=== PATIENT | female | born 1995 | race Caucasian/White ===

== ENCOUNTER 2016-11-20 10:26 | Emergency (ER) | payer OTHER ==
[2016-11-20 10:37] VITALS: BP 126/81
--- NOTE | 2016-11-20 10:41 | ER Document Report ---
ED Medical Screen (RME) - General Stated Complaint: POSSIBLE SYNCOPE Mode of Arrival: Medic Information source: Patient Notes: Patient presents to the emergency department after passing out at work. She reports she was sitting in a chair and just passed out. She reports this happens every day. Has history of epilepsy denies cardiac disease diabetes. Reports she ate breakfast. Denies other symptoms such as fever vomiting diarrhea. Denies trauma I have greeted and performed a rapid initial assessment of this patient. A comprehensive ED assessment and evaluation of the patient, analysis of test results and completion of the medical decision making process will be conducted by additional ED providers. TRAVEL OUTSIDE OF THE [place] IN LAST 30 DAYS: No - Related Data Allergies/Adverse Reactions: ketorolac tromethamine [From Toradol] Allergy (Verified 08/15/16 20:32) moxifloxacin HCl [From Avelox] Allergy (Verified 08/15/16 20:32) Seizures promethazine HCl [From Phenergan] Allergy (Verified 08/15/16 20:32) tramadol Allergy (Verified 08/15/16 20:32) Past Medical History Neurological Medical History: Reports: Hx Seizures Renal/ Medical History: Reports: Hx Kidney Stones, Hx Ovarian Cysts, Hx Pelvic Inflammatory Disease - February 2014 Musculoskeltal Medical History: Reports Hx Arthritis, Reports Hx Musculoskeletal Trauma Psychiatric Medical History: Reports: Hx Depression Past Surgical History: Reports: Hx Appendectomy, Hx Cholecystectomy - Immunizations Immunizations up to date: Yes Hx Diphtheria, Pertussis, Tetanus Vaccination: Yes Physical Exam - Vital signs Vitals: Temp Pulse Resp BP Pulse Ox 98.3 F 88 16 126/81 H 100 11/20/16 10:35 11/20/16 10:35 11/20/16 10:35 11/20/16 10:35 11/20/16 10:35 Course - Vital Signs Vital signs: Temp Pulse Resp BP Pulse Ox 98.3 F 88 16 126/81 H 100 11/20/16 10:35 11/20/16 10:35 11/20/16 10:35 11/20/16 10:35 11/20/16 10:35
--- NOTE | 2016-11-20 15:56 | EKG REPORT ---
SEVERITY:- NORMAL ECG - SINUS RHYTHM : Confirmed by: Avtar Villeda 20-Nov-2016 15:56:02
== END 2016-11-20 11:14 | disposition left against medical advice (07) ==
LOC: ER 10:26
DX: Z53.21 Procedure and treatment not carried out due to patient leaving prior to being seen by health care provider (principal)
CPT/HCPCS: 93005; 93010; 99281

== ENCOUNTER 2017-01-02 10:22 | Emergency (ER) | payer OTHER ==
[2017-01-02] MEDS ORDERED: NORMAL SALINE 1000 ML 1,000 ML IV ONE (10:36)
[2017-01-02] MEDS ORDERED: LEVETIRACETAM 500 MG/NACL-ISO 100 ML IV ONE ×2 (10:46→11:34)
--- NOTE | 2017-01-02 10:48 | ER Document Report ---
ED General - General Chief Complaint: Probable Seizure Stated Complaint: POSSIBLE SEIZURE Time Seen by Provider: 01/02/17 10:35 TRAVEL OUTSIDE OF THE [place] IN LAST 30 DAYS: No - HPI Patient complains to provider of: seizure Notes: Patient coming in for seizure-like activity. According to the patient she has had 2 seizures today. Upon my evaluation patient is awake alert somewhat groggy however ANO 3. Patient states she is unaware the last time she had seizures. States that her neurologist is . Patient states she has been compliant with her seizure medications. Patient states that her boyfriend has been sick over the last few days with nausea and vomiting patient states that she herself has had diarrhea. Otherwise patient has no other complaints. Patient is requesting for pain medication morphine and Dilaudid at this time. I have explained to the patient that she will not be receiving narcotics while she is being worked up for her seizures Patient states she has been in status before unaware of when she was in status - Related Data Allergies/Adverse Reactions: ketorolac tromethamine [From Toradol] Allergy (Verified 01/02/17 10:39) moxifloxacin HCl [From Avelox] Allergy (Verified 01/02/17 10:39) Seizures promethazine HCl [From Phenergan] Allergy (Verified 01/02/17 10:39) tramadol Allergy (Verified 01/02/17 10:39) Past Medical History - Social History Smoking Status: Unknown if Ever Smoked Family History: Reviewed & Not Pertinent Neurological Medical History: Reports: Hx Seizures Renal/ Medical History: Reports: Hx Kidney Stones, Hx Ovarian Cysts, Hx Pelvic Inflammatory Disease - February 2014. Denies: Hx Peritoneal Dialysis Musculoskeltal Medical History: Reports Hx Arthritis, Reports Hx Musculoskeletal Trauma Psychiatric Medical History: Reports: Hx Depression Past Surgical History: Reports: Hx Appendectomy, Hx Cholecystectomy - Immunizations Immunizations up to date: Yes Hx Diphtheria, Pertussis, Tetanus Vaccination: Yes Review of Systems - Review of Systems Constitutional: No symptoms reported EENT: No symptoms reported Cardiovascular: No symptoms reported Respiratory: No symptoms reported Gastrointestinal: No symptoms reported Genitourinary: No symptoms reported Female Genitourinary: No symptoms reported Musculoskeletal: No symptoms reported Skin: No symptoms reported Hematologic/Lymphatic: No symptoms reported Neurological/Psychological: Seizure -: Yes All other systems reviewed and negative Physical Exam - Vital signs Vitals: Resp Pulse Ox 16 98 01/02/17 10:36 01/02/17 10:36 Interpretation: Normal - General General appearance: Appears well, Alert - HEENT Head: Normocephalic, Atraumatic Eyes: Normal Pupils: PERRL - Respiratory Respiratory status: No respiratory distress Chest status: Nontender Breath sounds: Normal Chest palpation: Normal - Cardiovascular Rhythm: Regular Heart sounds: Normal auscultation Murmur: No - Abdominal Inspection: Normal Distension: No distension Bowel sounds: Normal Tenderness: Nontender Organomegaly: No organomegaly - Back Back: Normal, Nontender - Extremities General upper extremity: Normal inspection, Nontender, Normal color, Normal ROM , Normal temperature General lower extremity: Normal inspection, Nontender, Normal color, Normal ROM , Normal temperature, Normal weight bearing. No: Aubrey's sign - Neurological Neuro grossly intact: Yes Cognition: Normal Orientation: AAOx4 Alyse Coma Scale Eye Opening: Spontaneous Alyse Coma Scale Verbal: Oriented Frederick Coma Scale Motor: Obeys Commands Alyse Coma Scale Total: 15 Speech: Normal Motor strength normal: LUE, RUE, LLE, RLE Sensory: Normal - Psychological Associated symptoms: Normal affect, Normal mood - Skin Skin Temperature: Warm Skin Moisture: Dry Skin Color: Normal Course - Re-evaluation Re-evalutation: 01/02/17 10:49 Currently patient is a 3 with a 4 extremities normal neurological examination. Patient will be continued monitor. Will check a basic lab work CK tox screen. Will hold any narcotic pain medication will give the patient 500 mg of Keppra while she is waiting. Patient will be an IV fluid as wel 01/02/17 11:40 Called as the patient was in the bathroom given urine samples on the floor possibly having a seizure. There is no seizure activity seen by the staff patient was found floor. There is no signs of trauma of the patient falling off the toilet seat on the floor. Is no bruising to the head no contusions nothing to the hand. Patient was placed in a c-collar. Patient was escorted to radiology for do process on head CT neck CT chest x-ray after possible fall here in the hospital Patient will be continually monitored here 01/02/17 12:50 Because the patient's room for seizure-like activity patient with general tonic- clonic movement lasting for approximately 30 seconds did asked nurse to obtain a his airway which time the patient's activity did stop. Did leave the room and the activity discharged again. Given generalized tonic clonic activity nursing at bedside with nasal trumpet however again seizing activity had subsided. Patient after this does have corneal reflexes does restrain when trying to open up her eyes passive action 01/02/17 18:31 Discuss patient's case with her neurologist Dr. cabrera he states at this time this patient very well does have a history of pseudoseizures do not recommend changing medication agrees with ER course recommends discharged home follow-up in his office. Patient lab work shows no signs of critical etiology. Once a nasal trumpet was placed and the patient bedside patient no longer had any further possible seizure-like activity. Patient alert and oriented 3 upon evaluation will be discharged home follow-up with her neurologist encouraged take medications as prescribed. - Vital Signs Vital signs: Temp Pulse Resp BP Pulse Ox 98.2 F 12 126/85 H 100 01/02/17 14:43 01/02/17 14:37 01/02/17 14:38 01/02/17 14:37 - Laboratory Result Diagrams: 01/02/17 11:00 01/02/17 11:00 Laboratory results interpreted by me: 01/02/17 11:00 RDW 15.2 H Discharge - Discharge Clinical Impression: Seizure Condition: Good Disposition: HOME, SELF-CARE Instructions: Seizure, Known Epileptic ([facility]) Additional Instructions: Continue your medications as prescribed. Please avoid alcohol Return to the ER symptoms worsen follow-up with your neurologist. Call his office today for several a follow-up appointment Referrals: JEROME COLE DO [Primary Care Provider] - Follow up in 3-5 days KATIE KAMINSKI MD [ACTIVE STAFF] - Follow up in 3-5 days
[2017-01-02 11:26] LABS: ABSOLUTE LYMPHOCYTES (AUTO) 1.7 10^3/uL (0.5-4.7); ABSOLUTE MONOCYTES (AUTO) 0.4 10^3/uL (0.1-1.4); ABSOLUTE NEUT (AUTO) 2.2 10^3/uL (1.7-8.2); BASOPHILS % (AUTO) 0.4 % (0-2); EOSINOPHILS % (AUTO) 0.1 % (0-6); HEMATOCRIT 37.1 % (36.0-47.0); HEMOGLOBIN 12.5 g/dL (12.0-15.5); HGB HCT DIFFERENCE 0.4; LYMPHOCYTES % (AUTO) 39.2 % (13-45); MEAN CORPUSCULAR HGB CONC 33.6 g/dL (32.0-36.0); MEAN CORPUSCULAR VOLUME 86 fl (80-97); MONOCYTES % (AUTO) 8.3 % (3-13); RED CELL DISTRIBUTION WIDTH 15.2 % (11.5-14.0); WHITE BLOOD COUNT 4.2 10^3/uL (4.0-10.5)
[2017-01-02 11:49] LABS: ALANINE AMINOTRANSFERASE 25 U/L (9-52); ALBUMIN 4.1 g/dL (3.5-5.0); ALKALINE PHOSPHATASE 54 U/L (38-126); ANION GAP 9 (5-19); ASPARTATE AMINO TRANSFERASE 19 U/L (14-36); BILIRUBIN,DIRECT 0.4 mg/dL (0.0-0.4); BILIRUBIN,TOTAL 0.4 mg/dL (0.2-1.3); BLOOD UREA NITROGEN 11 mg/dL (7-20); CALCIUM 9.4 mg/dL (8.4-10.2); CARBON DIOXIDE 27 mmol/L (22-30); CHLORIDE 104 mmol/L (98-107); CREATINE KINASE 36 U/L (30-135); GLUCOSE 91 mg/dL (75-110); LIPASE 84.7 U/L (23-300); SODIUM 139.7 mmol/L (137-145); TOTAL PROTEIN 6.7 g/dL (6.3-8.2)
[2017-01-02 11:51] LABS: ALCOHOL < 10 mg/dL (NONE DETECTED)
[2017-01-02 11:56] LABS: APPEARANCE,URINE CLEAR; BILIRUBIN,URINE NEGATIVE (NEGATIVE); GLUCOSE, URINE NEGATIVE (NEGATIVE); KETONES,URINE NEGATIVE (NEGATIVE); LEUKOCYTE ESTERASE,URINE NEGATIVE (NEGATIVE); NITRITE,URINE NEGATIVE (NEGATIVE); PROTEIN,URINE NEGATIVE (NEGATIVE); URINE SPECIFIC GRAVITY 1.003; UROBILINOGEN,URINE NEGATIVE mg/dL (<2.0)
[2017-01-02 12:18] LABS: URINE BARBITURATES SCREEN NEGATIVE; URINE METHADONE SCREEN NEGATIVE; URINE OPIATES LOW NEGATIVE; URINE PHENCYCLIDINE SCREEN NEGATIVE
[2017-01-02 14:42] VITALS: BP 126/85
== END 2017-01-02 14:42 | disposition home or self-care (01) ==
LOC: ER 10:22
DX: G40.909 Epilepsy, unspecified, not intractable, without status epilepticus (principal); Z87.442 Personal history of urinary calculi; Z90.49 Acquired absence of other specified parts of digestive tract
CPT/HCPCS: 99285; 36415; 80177; 80307 ×2; 82550; 84702; 83690; 85025; 80053; 81001; 71010; 70450; 72125; J7030

== ENCOUNTER 2017-01-18 11:43 | Emergency (ER) | payer OTHER ==
--- NOTE | 2017-01-18 11:50 | ER Document Report ---
ED General - General Stated Complaint: SEIZURE Time Seen by Provider: 01/18/17 11:46 Mode of Arrival: Medic Information source: Patient Notes: 21-year-old female history of pseudoseizures presents with a seizure-like episode. EMS notes patient had 2-3 such episodes, they gave her 4 mg of Valium. Patient is on Keppra TRAVEL OUTSIDE OF THE [place] IN LAST 30 DAYS: No - HPI Onset: Just prior to arrival Onset/Duration: Sudden Quality of pain: No pain Severity: None Pain Level: Denies Associated symptoms: Other Exacerbated by: Denies Relieved by: Denies Similar symptoms previously: Yes Recently seen / treated by doctor: Yes - Related Data Allergies/Adverse Reactions: ketorolac tromethamine [From Toradol] Allergy (Verified 01/18/17 11:59) moxifloxacin HCl [From Avelox] Allergy (Verified 01/18/17 11:59) Seizures promethazine HCl [From Phenergan] Allergy (Verified 01/18/17 11:59) tramadol Allergy (Verified 01/18/17 11:59) Home Medications: Current Home Medications Clobazam [Onfi] 10 mg PO QHS 01/18/17 [History] Duloxetine HCl [Cymbalta] 60 mg PO BID 01/18/17 [History] Eslicarbazepine Acetate [Aptiom] 1,200 mg PO QHS 01/18/17 [History] Levetiracetam [Keppra 500 mg Tablet] 1,500 mg PO QAM 01/18/17 [History] Levetiracetam [Keppra 500 mg Tablet] 1,500 mg PO QHS 01/18/17 [History] Lorazepam [Ativan 1 mg Tablet] PO PRN 01/18/17 [History] Past Medical History - Social History Smoking Status: Never Smoker Cigarette use (# per day): No Chew tobacco use (# tins/day): No Smoking Education Provided: No Family History: Reviewed & Not Pertinent Neurological Medical History: Reports: Hx Seizures Renal/ Medical History: Reports: Hx Kidney Stones, Hx Ovarian Cysts, Hx Pelvic Inflammatory Disease - February 2014. Denies: Hx Peritoneal Dialysis Musculoskeltal Medical History: Reports Hx Arthritis, Reports Hx Musculoskeletal Trauma Psychiatric Medical History: Reports: Hx Depression Past Surgical History: Reports: Hx Appendectomy, Hx Cholecystectomy - Immunizations Immunizations up to date: Yes Hx Diphtheria, Pertussis, Tetanus Vaccination: Yes Review of Systems - Review of Systems Notes: PHYSICAL EXAMINATION: GENERAL: Well-appearing, well-nourished and in no acute distress. HEAD: Atraumatic, normocephalic. EYES: Pupils equal round and reactive to light, extraocular movements intact, conjunctiva are normal. ENT: Nares patent, oropharynx clear without exudates. Moist mucous membranes. NECK: Normal range of motion, supple without lymphadenopathy LUNGS: Breath sounds clear to auscultation bilaterally and equal. No wheezes rales or rhonchi. HEART: Regular rate and rhythm without murmurs ABDOMEN: Soft, nontender, nondistended abdomen. No guarding, no rebound. No masses appreciated. Female : deferred Musculoskeletal: Normal range of motion, no pitting or edema. No cyanosis. NEUROLOGICAL: Cranial nerves grossly intact. Normal speech, normal gait. Normal sensory, motor exams patient is able to resist from dropping her left arm on her head PSYCH: Normal mood, normal affect. SKIN: Warm, Dry, normal turgor, no rashes or lesions noted. Physical Exam - Vital signs Vitals: Resp BP 50 H 148/88 H 01/18/17 11:48 01/18/17 11:48 Course - Re-evaluation Re-evalutation: 01/18/17 11:49 Given extensive history pseudoseizures, and her actions in the emergency department patient's having probably another pseudoseizure. Lab work is pending. Patient did have another episode of generalized tonic-clonic I do not know any actual seizure activity at this time 01/18/17 15:02 Patient has been watched in the emergency department for approximately 3-1/2 hours, she has been stable throughout, intermittently she will become tachycardic when she is shaking her legs. Otherwise she is stable for discharge Given that her neurologist believes there is pseudoseizure activity I will have her follow-up with him, Les jung pending After performing a Medical Screening Examination, I estimate there is LOW risk for INTRACRANIAL HEMORRHAGE, ISCHEMIC CVA, MALIGNANT DYSRHYTHMIA, ACUTE CORONARY SYNDROME, MENINGITIS, PULMONARY EMBOLISM, or SEPSIS thus I consider the discharge disposition reasonable. I have reevaluated this patient multiple times and no significant life threatening changes are noted. The patient and I have discussed the diagnosis and risks, and we agree with discharging home with close follow-up with the understanding that symptoms and presentations can change. We also discussed returning to the Emergency Department immediately if new or worsening symptoms occur. We have discussed the symptoms which are most concerning (e.g., changing or worsening pain, weakness, vomiting, fever) that necessitate immediate return. - Vital Signs Vital signs: Temp Pulse Resp BP Pulse Ox 99.6 F 132 H 20 140/95 H 98 01/18/17 11:53 01/18/17 11:53 01/18/17 14:31 01/18/17 14:31 01/18/17 14:31 - Laboratory Result Diagrams: 01/18/17 11:54 01/18/17 11:54 Laboratory results interpreted by me: 01/18/17 01/18/17 01/18/17 11:54 11:54 12:20 RDW 14.3 H Sodium 136.0 L Ur Leukocyte Esterase TRACE H - EKG Interpretation by Me EKG shows normal: Sinus rhythm, [place], Intervals, QRS Complexes Discharge - Discharge Clinical Impression: Seizure-like activity, Tachycardia Condition: Stable Disposition: HOME, SELF-CARE Additional Instructions: Seizure, Known Epileptic You have had a seizure. Seizures may "break through" in an epileptic due to stress of infection or injury, a change in blood chemistry, or drug and alcohol use. Another common cause is failure to take medication as prescribed. Your doctor has evaluated your situation for the likely cause of this seizure. It is important that you follow his advice concerning any medication changes and follow-up care. Further testing of anti-seizure medication levels in your blood may be necessary. 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 This seizure must be reported to the milk delivery driver 's license bureau. Call the doctor or return if seizures recur, or if new or unusual symptoms arise -- such as severe headache, confusion, excessive sleepiness, local weakness or numbness, neck stiffness, or fever. Referrals: KATIE KAMINSKI MD [ACTIVE STAFF] - Follow up as needed
[2017-01-18 12:13] LABS: ABSOLUTE LYMPHOCYTES (AUTO) 2.4 10^3/uL (0.5-4.7); ABSOLUTE MONOCYTES (AUTO) 0.4 10^3/uL (0.1-1.4); ABSOLUTE NEUT (AUTO) 3.7 10^3/uL (1.7-8.2); BASOPHILS % (AUTO) 0.5 % (0-2); EOSINOPHILS % (AUTO) 0.1 % (0-6); HEMOGLOBIN 13.3 g/dL (12.0-15.5); HGB HCT DIFFERENCE -0.1; LYMPHOCYTES % (AUTO) 36.7 % (13-45); MEAN CORPUSCULAR HEMOGLOBIN 28.7 pg (27.0-33.4); MEAN CORPUSCULAR HGB CONC 33.3 g/dL (32.0-36.0); MEAN CORPUSCULAR VOLUME 86 fl (80-97); MONOCYTES % (AUTO) 6.7 % (3-13); RED BLOOD COUNT 4.63 10^6/uL (3.72-5.28); RED CELL DISTRIBUTION WIDTH 14.3 % (11.5-14.0); WHITE BLOOD COUNT 6.6 10^3/uL (4.0-10.5)
[2017-01-18 12:34] LABS: ALANINE AMINOTRANSFERASE 25 U/L (9-52); ALBUMIN 4.4 g/dL (3.5-5.0); ALKALINE PHOSPHATASE 54 U/L (38-126); ANION GAP 12 (5-19); ASPARTATE AMINO TRANSFERASE 20 U/L (14-36); BILIRUBIN,DIRECT 0.4 mg/dL (0.0-0.4); BILIRUBIN,TOTAL 0.5 mg/dL (0.2-1.3); BLOOD UREA NITROGEN 14 mg/dL (7-20); CALCIUM 9.9 mg/dL (8.4-10.2); CARBON DIOXIDE 25 mmol/L (22-30); CHLORIDE 99 mmol/L (98-107); CREATININE RESULT 0.67 mg/dL (0.52-1.25); GLUCOSE 82 mg/dL (75-110); POTASSIUM 4.4 mmol/L (3.6-5.0); TOTAL PROTEIN 7.2 g/dL (6.3-8.2)
[2017-01-18 12:57] LABS: APPEARANCE,URINE CLEAR; BILIRUBIN,URINE NEGATIVE (NEGATIVE); GLUCOSE, URINE NEGATIVE (NEGATIVE); KETONES,URINE NEGATIVE (NEGATIVE); LEUKOCYTE ESTERASE,URINE TRACE (NEGATIVE); NITRITE,URINE NEGATIVE (NEGATIVE); PROTEIN,URINE NEGATIVE (NEGATIVE); URINE SPECIFIC GRAVITY 1.009; UROBILINOGEN,URINE NEGATIVE mg/dL (<2.0)
[2017-01-18 13:17] LABS: URINE BARBITURATES SCREEN NEGATIVE; URINE METHADONE SCREEN NEGATIVE; URINE OPIATES LOW NEGATIVE; URINE PHENCYCLIDINE SCREEN NEGATIVE
[2017-01-18] MEDS ORDERED: ACETAMINOPHEN 325 MG TABLET PO ONE (13:30)
[2017-01-18 14:56] VITALS: BP 140/95
--- NOTE | 2017-01-18 18:31 | EKG REPORT ---
SEVERITY:- OTHERWISE NORMAL ECG - SINUS TACHYCARDIA : Confirmed by: Shakir Velazquez MD 18-Jan-2017 18:29:55
== END 2017-01-18 15:20 | disposition home or self-care (01) ==
LOC: ER 11:43
DX: R29.818 Other symptoms and signs involving the nervous system (principal); R00.0 Tachycardia, unspecified; Z79.899 Other long term (current) drug therapy; Z88.8 Allergy status to other drugs, medicaments and biological substances; Z88.5 Allergy status to narcotic agent
CPT/HCPCS: 36415; 51701; 80053; 80177; 80307; 81001; 81025; 82962; 85025; 93005; 93010; 99284

== ENCOUNTER 2017-05-10 15:21 | Emergency (ER) | payer OTHER ==
[2017-05-10] MEDS ORDERED: NORMAL SALINE 1000 ML 1,000 ML IV ONE (16:01)
--- NOTE | 2017-05-10 16:14 | ER Document Report ---
ED Seizure - General Stated Complaint: POSSIBLE SEIZURE Time Seen by Provider: 05/10/17 15:50 Notes: 22-year-old female presents with questionable seizure. History is limited as the patient is very sedated after receiving Valium 10 mg IV and a total of Versed 10 mg through IV/intranasal routes. Reviewing records she does have a history of pseudoseizures and is apparently on Keppra. She was able to tell the nurse she has been taking her medications. EMS reported 2 seizures that were generalized tonic-clonic. They were reported as going from one side to the other. Unclear of the patient's consciousness during this. Apparently there was no incontinence. Again the patient can give me no reports at this point. - Related Data Allergies/Adverse Reactions: ketorolac tromethamine [From Toradol] Allergy (Verified 01/18/17 11:59) moxifloxacin HCl [From Avelox] Allergy (Verified 01/18/17 11:59) Seizures promethazine HCl [From Phenergan] Allergy (Verified 01/18/17 11:59) tramadol Allergy (Verified 01/18/17 11:59) Past Medical History - Social History Smoking Status: Smoker,Current Status Unk Family History: Reviewed & Not Pertinent Neurological Medical History: Reports: Hx Seizures Renal/ Medical History: Reports: Hx Kidney Stones, Hx Ovarian Cysts, Hx Pelvic Inflammatory Disease - February 2014. Denies: Hx Peritoneal Dialysis Musculoskeltal Medical History: Reports Hx Arthritis, Reports Hx Musculoskeletal Trauma Psychiatric Medical History: Reports: Hx Depression Past Surgical History: Reports: Hx Appendectomy, Hx Cholecystectomy - Immunizations Immunizations up to date: Yes Hx Diphtheria, Pertussis, Tetanus Vaccination: Yes Review of Systems - Review of Systems -: Yes ROS unobtainable due to patient's medical condition Physical Exam - Vital signs Interpretation: Tachycardic - Notes Notes: GENERAL: VS as per nursing doc. Well-appearing, well-nourished and in no acute distress. Somnolent and resting intermittently opening eyes. HEAD: Atraumatic, normocephalic. EYES: Pupils equal round and reactive to light but sluggish at 6 mm, no gaze noted, sclera anicteric, no conjunctival injection or discharge. ENT: Left nasal trumpet in place, oropharynx clear without exudates. Moist mucous membranes. NECK: Normal range of motion, supple, no carotid bruits. LUNGS: Breath sounds clear to auscultation bilaterally and equal. No wheezes rales or rhonchi. HEART: Normal S1S2. Regular rate and rhythm without murmurs. Equal peripheral pulses. ABDOMEN: Soft, no mass or obvious tenderness to palpation EXTREMITIES: Normal range of motion passively, no edema NEUROLOGICAL: Patient not cooperative for exam at this point. There is withdrawal to stimuli. No seizure activity noted PSYCH: Nonverbal, somnolent SKIN: Warm, Dry, no cyanosis, Cap refill < 2 sec. small abrasion over left anterior ankle which is old. Course - Re-evaluation Re-evalutation: 05/10/17 19:12 I had a discussion with the patient to see if there is anything that could be causing her seizures or pseudoseizures. Reviewed the chart from prior. She had no seizure activity here that I could observe and nurses noted no anywhere she was postictal or unresponsive. She is asking just to go home at this point. She did start Vistaril but states she has not taken more than she was directed. Her big concern seem to be pain management as the benzos started to wear off. I do not feel comfortable providing her with narcotics but I did offer her Robaxin and wrote her a prescription for this. She received a dose of Keppra before she left. - Laboratory Result Diagrams: 05/10/17 16:06 05/10/17 16:06 Laboratory results interpreted by me: 05/10/17 16:06 Hgb 11.0 L Hct 32.8 L RDW 14.3 H - EKG Interpretation by Me Rate: Tachycardia - Rate 114, sinus tachycardia, nonspecific ST abnormalities more V4 through V6 and inferiorly. Appears consistent with December 2016 EKG. QRS abnormal duration. Discharge - Discharge Clinical Impression: Altered mental status, Possible Seizure vs Pseudoseizure Condition: Good Additional Instructions: Return for emergency or concern. Prescriptions: Methocarbamol [Robaxin 750 mg Tablet] 750 - 1,500 mg PO Q8HP PRN #14 tablet PRN Reason: For Pain Referrals: KATIE KAMINSKI MD [ACTIVE STAFF] - Follow up tomorrow
[2017-05-10 16:29] LABS: ABSOLUTE LYMPHOCYTES (AUTO) 1.2 10^3/uL (0.5-4.7); ABSOLUTE MONOCYTES (AUTO) 0.4 10^3/uL (0.1-1.4); ABSOLUTE NEUT (AUTO) 3.1 10^3/uL (1.7-8.2); BASOPHILS % (AUTO) 0.6 % (0-2); HEMATOCRIT 32.8 % (36.0-47.0); HGB HCT DIFFERENCE 0.2; MEAN CORPUSCULAR HEMOGLOBIN 27.4 pg (27.0-33.4); MEAN CORPUSCULAR HGB CONC 33.7 g/dL (32.0-36.0); MEAN CORPUSCULAR VOLUME 82 fl (80-97); RED BLOOD COUNT 4.02 10^6/uL (3.72-5.28); RED CELL DISTRIBUTION WIDTH 14.3 % (11.5-14.0); SEGMENTED NEUTROPHILS % (AUTO) 65.4 % (42-78); WHITE BLOOD COUNT 4.7 10^3/uL (4.0-10.5)
[2017-05-10 16:47] LABS: ANION GAP 9 (5-19); BLOOD UREA NITROGEN 8 mg/dL (7-20); CALCIUM 9.7 mg/dL (8.4-10.2); CARBON DIOXIDE 26 mmol/L (22-30); CHLORIDE 104 mmol/L (98-107); CREATININE RESULT 0.65 mg/dL (0.52-1.25); GLUCOSE 80 mg/dL (75-110); MAGNESIUM 1.8 mg/dL (1.6-2.3); POTASSIUM 3.9 mmol/L (3.6-5.0); SODIUM 139.3 mmol/L (137-145)
[2017-05-10 18:47] LABS: URINE BARBITURATES SCREEN NEGATIVE; URINE METHADONE SCREEN NEGATIVE; URINE OPIATES LOW NEGATIVE; URINE PHENCYCLIDINE SCREEN NEGATIVE
[2017-05-10] MEDS ORDERED: METHOCARBAMOL 750 MG TABLET PO ONE (19:11)
[2017-05-10] MEDS ORDERED: LEVETIRACETAM 500 MG TABLET PO ONE (19:11)
[2017-05-10 20:02] VITALS: BP 125/84
--- NOTE | 2017-05-10 20:05 | EKG REPORT ---
SEVERITY:- ABNORMAL ECG - SINUS TACHYCARDIA NONSPECIFIC REPOL ABNORMALITY, DIFFUSE LEADS : Confirmed by: Avtar Villeda 10-May-2017 20:05:20
== END 2017-05-10 20:02 | disposition home or self-care (01) ==
LOC: ER 15:21
DX: R41.82 Altered mental status, unspecified (principal); R56.9 Unspecified convulsions; R00.0 Tachycardia, unspecified; Z88.3 Allergy status to other anti-infective agents; F17.200 Nicotine dependence, unspecified, uncomplicated; Z87.442 Personal history of urinary calculi; Z90.49 Acquired absence of other specified parts of digestive tract
CPT/HCPCS: 93005; 99284; 96360; 51701; 36415; 80177; 83735; 84703; 85025; 80048; 80307; 93010; J3490; J7030

== ENCOUNTER 2017-06-05 11:39 | Emergency (ER) | payer OTHER ==
--- NOTE | 2017-06-05 13:06 | ER Document Report ---
HPI - HPI Patient complains to provider of: Left ankle pain Onset: Just prior to arrival Onset/Duration: Sudden Quality of pain: Throbbing Severity: Severe Pain Level: 5 Context: Patient states she was wearing wet shoes this morning and she twisted her left ankle. Associated Symptoms: None Exacerbated by: Movement, Walking Relieved by: Denies Similar symptoms previously: Yes Recently seen / treated by doctor: No - ROS ROS below otherwise negative: Yes Systems Reviewed and Negative: Yes All other systems reviewed and negative - CONSTITUTIONAL Constitutional: DENIES: Fever - EENT EENT: DENIES: Congestion - NEURO Neurology: DENIES: Headache - CARDIOVASCULAR Cardiovascular: DENIES: Chest pain - RESPIRATORY Respiratory: DENIES: Trouble Breathing - GASTROINTESTINAL Gastrointestinal: DENIES: Abdominal Pain - URINARY Urinary: DENIES: Dysuria - REPRODUCTIVE Reproductive: DENIES: : - DERM Skin Color: Normal, [place] Skin Problems: None Past Medical History - General Information source: Patient - Social History Smoking Status: Never Smoker Chew tobacco use (# tins/day): No Frequency of alcohol use: None Drug Abuse: None Lives with: Spouse/Significant other Family History: Reviewed & Not Pertinent Neurological Medical History: Reports: Hx Seizures Renal/ Medical History: Reports: Hx Kidney Stones, Hx Ovarian Cysts, Hx Pelvic Inflammatory Disease - February 2014 Musculoskeltal Medical History: Reports Hx Arthritis, Reports Hx Musculoskeletal Trauma Psychiatric Medical History: Reports: Hx Anxiety, Hx Depression Past Surgical History: Reports: Hx Appendectomy, Hx Cholecystectomy - Immunizations Immunizations up to date: Yes Hx Diphtheria, Pertussis, Tetanus Vaccination: Yes Vertical Provider Document - CONSTITUTIONAL Agree With Documented VS: Yes Exam Limitations: No Limitations General Appearance: WD/WN, No Apparent Distress - INFECTION CONTROL TRAVEL OUTSIDE OF THE [place] IN LAST 30 DAYS: No - HEENT HEENT: Atraumatic, Normocephalic - RESPIRATORY Respiratory: Breath Sounds Normal, No Respiratory Distress O2 Sat by Pulse Oximetry: 100 - CARDIOVASCULAR Cardiovascular: Regular Rate, Regular Rhythm - GI/ABDOMEN Gastrointestinal: Abdomen Soft - MUSCULOSKELETAL/EXTREMETIES Musculoskeletal/Extremeties: Tender - left lateral ankle, no edema, pain with ROM Notes: Neurovascular and sensation intact - NEURO Level of Consciousness: Awake, Alert, Appropriate - DERM Integumentary: Warm, Dry, No Rash Course - Vital Signs Vital signs: Temp Pulse Resp BP Pulse Ox 98.5 F 91 122/79 100 06/05/17 12:17 06/05/17 12:17 06/05/17 12:17 06/05/17 12:17 Procedures - Immobilization Left Ankle Pre-Proc Neuro Vasc Exam: Normal Immobilizer type: Ankle stirrup, Crutches Performed by: PCT Post-Proc Neuro Vasc Exam: Normal Alignment checked and good: Yes Discharge - Discharge Clinical Impression: Left ankle sprain Qualifiers: Encounter type: initial encounter Involved ligament of ankle: unspecified ligament Qualified Code(s): S93.402A - Sprain of unspecified ligament of left ankle, initial encounter Condition: Good Disposition: HOME, SELF-CARE Instructions: Ankle Stirrup Splint ([facility]), Use of Crutches ([facility]), Ice & Elevation ([facility]), Ice Packs ([facility]), Sprained Ankle ([facility]) Additional Instructions: Ice and elevate ankle Ibuprofen as needed for pain With your doctor if not better in 1 week return as needed Prescriptions: Ibuprofen 800 mg PO TID #20 tablet Forms: Return to Work
--- NOTE | 2017-06-05 13:23 | RADIOLOGY REPORT (SQ) ---
EXAM DESCRIPTION: ANKLE LEFT COMPLETE COMPLETED DATE/TIME: 06/05/2017 1:16 pm REASON FOR STUDY: injury COMPARISON: 07/14/2016 NUMBER OF VIEWS: Three views. TECHNIQUE: AP, lateral, and oblique radiographic images acquired of the left ankle. LIMITATIONS: None. FINDINGS: MINERALIZATION: Normal. BONES: No acute fracture or dislocation. No worrisome bone lesions. JOINTS: No effusions. SOFT TISSUES: No soft tissue swelling. No foreign body. OTHER: No other significant finding. IMPRESSION: NEGATIVE STUDY OF THE LEFT ANKLE. NO RADIOGRAPHIC EVIDENCE OF ACUTE INJURY. TECHNICAL DOCUMENTATION: JOB ID: [id number] [employer]- All Rights Reserved
[2017-06-05 14:03] VITALS: BP 137/83
== END 2017-06-05 14:03 | disposition home or self-care (01) ==
LOC: ER 11:39
PROC: 2W3RX1Z Immobilization of Left Lower Leg using Splint (ICD-10-PCS; principal; 2017-06-05)
DX: S93.402A Sprain of unspecified ligament of left ankle, initial encounter (principal); M25.572 Pain in left ankle and joints of left foot; X50.1XXA Overexertion from prolonged static or awkward postures, initial encounter
CPT/HCPCS: 99283; 73610; 29515; L1902

== ENCOUNTER 2017-07-10 14:01 | Emergency (ER) | payer OTHER ==
[2017-07-10] MEDS ORDERED: NORMAL SALINE 1000 ML 1,000 ML IV PRN (14:10)
[2017-07-10] MEDS ORDERED: LEVETIRACETAM 1500 MG/NACL-ISO 1,500 MG/100 ML RTUPB IV ONE (14:10)
[2017-07-10 14:57] LABS: ALANINE AMINOTRANSFERASE 26 U/L (9-52); ALBUMIN 4.5 g/dL (3.5-5.0); ALKALINE PHOSPHATASE 49 U/L (38-126); ANION GAP 12 (5-19); ASPARTATE AMINO TRANSFERASE 23 U/L (14-36); BILIRUBIN,DIRECT 0.3 mg/dL (0.0-0.4); BILIRUBIN,TOTAL 0.3 mg/dL (0.2-1.3); BLOOD UREA NITROGEN 10 mg/dL (7-20); CARBON DIOXIDE 25 mmol/L (22-30); CHLORIDE 101 mmol/L (98-107); CREATININE RESULT 0.63 mg/dL (0.52-1.25); GLUCOSE 114 mg/dL (75-110); POTASSIUM 3.8 mmol/L (3.6-5.0); SODIUM 137.9 mmol/L (137-145); TOTAL PROTEIN 7.1 g/dL (6.3-8.2)
[2017-07-10] MEDS ORDERED: METOCLOPRAMIDE HCL INJ/PF 10 MG/2 ML SDV IV ONE (15:03)
--- NOTE | 2017-07-10 15:30 | ER Document Report ---
ED Seizure - General Chief Complaint: Seizure Stated Complaint: POSSIBLE SEIZURE Time Seen by Provider: 07/10/17 14:09 Notes: The patient is a 22-year-old female, past medical history possible seizure disorder versus pseudoseizures, fibromyalgia, presents after four possible seizure episodes witnessed by EMS that lasted less than 1 minute. She was given 5 mg IV Versed prior to arrival and 12.5 g D50 due to a blood sugar of 68. On arrival to the ER, she is awake and will nod her head to questions. She is slightly drowsy, but no further seizure activity is witnessed. According to EMS, she is compliant with her medications and follows with Dr. Perez. - Related Data Allergies/Adverse Reactions: ketorolac tromethamine [From Toradol] Allergy (Verified 05/10/17 21:49) moxifloxacin HCl [From Avelox] Allergy (Verified 05/10/17 21:49) Seizures promethazine HCl [From Phenergan] Allergy (Verified 05/10/17 21:49) tramadol Allergy (Verified 05/10/17 21:49) Past Medical History - General Information source: Emergency Med Personnel Cannot obtain history due to: Altered mental status - Social History Smoking Status: Unknown if Ever Smoked Family History: Reviewed & Not Pertinent Neurological Medical History: Reports: Hx Seizures Renal/ Medical History: Reports: Hx Kidney Stones, Hx Ovarian Cysts, Hx Pelvic Inflammatory Disease - February 2014. Denies: Hx Peritoneal Dialysis Musculoskeltal Medical History: Reports Hx Arthritis, Reports Hx Musculoskeletal Trauma Psychiatric Medical History: Reports: Hx Anxiety, Hx Depression Past Surgical History: Reports: Hx Appendectomy, Hx Cholecystectomy - Immunizations Immunizations up to date: Yes Hx Diphtheria, Pertussis, Tetanus Vaccination: Yes Review of Systems - Review of Systems -: Yes ROS unobtainable due to patient's medical condition Physical Exam - Vital signs Vitals: Temp 98.7 F 07/10/17 14:13 - Notes Notes: PHYSICAL EXAMINATION: GENERAL: Well-appearing, well-nourished and in no acute distress. Appears slightly drowsy. HEAD: Atraumatic, normocephalic. EYES: Pupils equal round and reactive to light, extraocular movements intact, sclera anicteric, conjunctiva are normal. ENT: nares patent, oropharynx clear without exudates. Moist mucous membranes. NECK: Normal range of motion, supple without lymphadenopathy LUNGS: Breath sounds clear to auscultation bilaterally and equal. No wheezes rales or rhonchi. HEART: Tachycardia. ABDOMEN: Soft, nontender, normoactive bowel sounds. No guarding, no rebound. No masses appreciated. EXTREMITIES: Normal range of motion, no pitting or edema. No cyanosis. NEUROLOGICAL: Cranial nerves grossly intact. Moves all 4 extremities. Nods head to questions, but no speech. PSYCH: Normal mood, normal affect. SKIN: Warm, Dry, normal turgor, no rashes or lesions noted. Course - Re-evaluation Re-evalutation: Looking through multiple prior ER visits, there is a suspicion for pseudoseizure activity by her neurologist, Dr. Perez. She is taking her medications as prescribed. Her electrolytes and blood sugar are normal and she is not . No history of head injury and her symptoms are atypical for meningitis, SAH or ICH at this time. She is wide awake and there is no further possible seizure activity witnessed in the emergency room. Her initial tachycardia resolved after IV fluids and she is hemodynamically stable. Will discharge patient home with follow-up at her neurologist. - Vital Signs Vital signs: Temp Pulse Resp BP Pulse Ox 98.7 F 07/10/17 14:13 - Laboratory Result Diagrams: 07/10/17 14:16 Laboratory results interpreted by me: 07/10/17 14:16 Glucose 114 H Discharge - Discharge Clinical Impression: Seizure-like activity Condition: Stable Disposition: HOME, SELF-CARE Additional Instructions: Follow-up with your Neurologist, Dr. Perez. Seizure, Known Epileptic You have had a seizure. Seizures may "break through" in an epileptic due to stress of infection or injury, a change in blood chemistry, or drug and alcohol use. Another common cause is failure to take medication as prescribed. Your doctor has evaluated your situation for the likely cause of this seizure. It is important that you follow his advice concerning any medication changes and follow-up care. Further testing of anti-seizure medication levels in your blood may be necessary. If you have a tour bus driver/guide's license, it's important that you DO NOT DRIVE until given permission by your physician. This seizure must be reported to the tour bus driver/guide 's license bureau. Call the doctor or return if seizures recur, or if new or unusual symptoms arise -- such as severe headache, confusion, excessive sleepiness, local weakness or numbness, neck stiffness, or fever. Referrals: KATIE KAMINSKI MD [ACTIVE STAFF] - Follow up as needed
[2017-07-10] MEDS ORDERED: PROMETHAZINE HCL 25 MG TABLET PO ONE (15:35)
[2017-07-10] MEDS ORDERED: KETOROLAC TROMETHAMINE INJ/PF 30 MG/1 ML SDV IV ONE (15:35)
[2017-07-10 16:03] VITALS: BP 138/81
== END 2017-07-10 16:06 | disposition home or self-care (01) ==
LOC: ER 14:01
DX: R29.818 Other symptoms and signs involving the nervous system (principal); R40.0 Somnolence; R00.0 Tachycardia, unspecified; Z88.8 Allergy status to other drugs, medicaments and biological substances; Z88.5 Allergy status to narcotic agent; Z88.1 Allergy status to other antibiotic agents
CPT/HCPCS: 99284; 96361; 96374; 96375; 36415; 82962; 84703; 80053; J1885; J2765; J7030; J1953

== ENCOUNTER 2017-07-12 11:40 | Emergency (ER) | payer OTHER ==
[2017-07-12] MEDS ORDERED: NORMAL SALINE 1000 ML 1,000 ML IV ONE ×2 (11:43→13:14)
[2017-07-12] MEDS ORDERED: LEVETIRACETAM 1000 MG/NACL-ISO 1,000 MG/100 ML RTUPB IV ONE (11:44)
[2017-07-12] MEDS ORDERED: LORAZEPAM INJ 2 MG/1 ML VIAL IV ONE (11:47)
[2017-07-12 12:18] LABS: ABSOLUTE LYMPHOCYTES (AUTO) 1.9 10^3/uL (0.5-4.7); ABSOLUTE MONOCYTES (AUTO) 0.3 10^3/uL (0.1-1.4); ABSOLUTE NEUT (AUTO) 2.9 10^3/uL (1.7-8.2); BASOPHILS % (AUTO) 0.4 % (0-2); HEMATOCRIT 33.5 % (36.0-47.0); HEMOGLOBIN 11.3 g/dL (12.0-15.5); HGB HCT DIFFERENCE 0.4; LYMPHOCYTES % (AUTO) 36.9 % (13-45); MEAN CORPUSCULAR HEMOGLOBIN 26.5 pg (27.0-33.4); MEAN CORPUSCULAR HGB CONC 33.8 g/dL (32.0-36.0); MEAN CORPUSCULAR VOLUME 78 fl (80-97); MONOCYTES % (AUTO) 6.2 % (3-13); RED BLOOD COUNT 4.29 10^6/uL (3.72-5.28); RED CELL DISTRIBUTION WIDTH 15.4 % (11.5-14.0); SEGMENTED NEUTROPHILS % (AUTO) 56.5 % (42-78)
[2017-07-12 12:24] LABS: PROTHROMBIN TIME 13.8 SEC (11.4-15.4)
--- NOTE | 2017-07-12 12:31 | RADIOLOGY REPORT (SQ) ---
EXAM DESCRIPTION: CT HEAD WITHOUT COMPLETED DATE/TIME: 07/12/2017 12:18 pm REASON FOR STUDY: ams, seizure COMPARISON: 01/02/2017 TECHNIQUE: Axial images acquired through the brain without intravenous contrast. Images reviewed wi th bone, brain and subdural windows. Images stored on PACS. All CT scanners at this facility use dose modulation, iterative reconstruction, and/or weight based d osing when appropriate to reduce radiation dose to as low as reasonably achievable (ALARA). [facility]: Dose Right [facility]: CareDose [facility]: Dose Right [facility]: Teradose 4D [facility]: Smart [employer] RADIATION DOSE: Up-to-date CT equipment and radiation dose reduction techniques were employed. CTDIv ol: 64.6 mGy. DLP: 1163 mGy-cm. mGy. LIMITATIONS: None. FINDINGS: VENTRICLES: Normal size and contour. CEREBRUM: No masses. No hemorrhage. No midline shift. No evidence for acute infarction. Normal gra y/white matter differentiation. No areas of low density in the white matter. CEREBELLUM: No masses. No hemorrhage. No alteration of density. No evidence for acute infarction. EXTRAAXIAL SPACES: No fluid collections. No masses. ORBITS AND GLOBE: No intra- or extraconal masses. Normal contour of globe without masses. CALVARIUM: No fracture. PARANASAL SINUSES: No fluid or mucosal thickening. SOFT TISSUES: No mass or hematoma. OTHER: No other significant finding. IMPRESSION: NORMAL BRAIN CT WITHOUT CONTRAST. EVIDENCE OF ACUTE STROKE: NO. COMMENT: Quality ID # [id number]: Final reports with documentation of one or more dose reduction techniques (e.g., Automated exposure control, adjustment of the mA and/or kV according to patient size, use of iterative reconstruction technique) TECHNICAL DOCUMENTATION: JOB ID: [id number]- All Rights Reserved
--- NOTE | 2017-07-12 12:32 | RADIOLOGY REPORT (SQ) ---
EXAM DESCRIPTION: CHEST SINGLE VIEW COMPLETED DATE/TIME: 07/12/2017 12:24 pm REASON FOR STUDY: ams COMPARISON: None. EXAM PARAMETERS: NUMBER OF VIEWS: One view. TECHNIQUE: Single frontal radiographic view of the chest acquired. RADIATION DOSE: NA LIMITATIONS: None. FINDINGS: LUNGS AND PLEURA: No opacities, masses or pneumothorax. No pleural effusion. MEDIASTINUM AND HILAR STRUCTURES: No masses. Contour normal. HEART AND VASCULAR STRUCTURES: Heart normal in size. Normal vasculature. BONES: No acute findings. HARDWARE: Electronic device overlies the left upper chest. OTHER: No other significant finding. IMPRESSION: NO ACUTE RADIOGRAPHIC FINDING IN THE CHEST. TECHNICAL DOCUMENTATION: JOB ID: [id number] [employer]- All Rights Reserved
[2017-07-12 12:38] LABS: ALANINE AMINOTRANSFERASE 28 U/L (9-52); ALBUMIN 4.1 g/dL (3.5-5.0); ALKALINE PHOSPHATASE 52 U/L (38-126); ANION GAP 12 (5-19); ASPARTATE AMINO TRANSFERASE 27 U/L (14-36); BILIRUBIN,DIRECT 0.2 mg/dL (0.0-0.4); BILIRUBIN,TOTAL 0.3 mg/dL (0.2-1.3); BLOOD UREA NITROGEN 9 mg/dL (7-20); CARBON DIOXIDE 26 mmol/L (22-30); CHLORIDE 101 mmol/L (98-107); CREATININE RESULT 0.64 mg/dL (0.52-1.25); GLUCOSE 81 mg/dL (75-110); POTASSIUM 3.8 mmol/L (3.6-5.0); SODIUM 138.6 mmol/L (137-145); TOTAL PROTEIN 6.4 g/dL (6.3-8.2)
--- NOTE | 2017-07-12 12:49 | ER Document Report ---
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 EMS states they picked the patient up at work. EMS states that the patient had a seizure every 3 or 4 minutes in route here. Patient is on Keppra. (HARRIS,GERALDINE) - Related Data Allergies/Adverse Reactions: moxifloxacin HCl [From Avelox] Allergy (Verified 05/10/17 21:49) Seizures Past Medical History - General Information source: Emergency Med Personnel, [facility] Records - Social History Smoking Status: Unknown if Ever Smoked Cigarette use (# per day): No Family History: Reviewed & Not Pertinent Patient has suicidal ideation: No Patient has homicidal ideation: No Neurological Medical History: Reports: Hx Seizures - pseudo Renal/ Medical History: Reports: Hx Kidney Stones, Hx Ovarian Cysts, Hx Pelvic Inflammatory Disease - February 2014 Musculoskeltal Medical History: Reports Hx Arthritis, Reports Hx Musculoskeletal Trauma Psychiatric Medical History: Reports: Hx Anxiety, Hx Depression Past Surgical History: Reports: Hx Appendectomy, Hx Cholecystectomy - Immunizations Immunizations up to date: Yes Hx Diphtheria, Pertussis, Tetanus Vaccination: Yes <ADRYAN IGLESIASON - Last Filed: 07/12/17 13:56> Review of Systems - Review of Systems -: Yes ROS unobtainable due to patient's medical condition - seizing/postictal <HARRISGERALDINE - Last Filed: 07/12/17 13:56> Physical Exam - Vital signs Interpretation: Tachycardic - General General appearance: Other - post ictal In distress: Mild - Respiratory Respiratory status: No respiratory distress Breath sounds: Normal - Cardiovascular Rhythm: Regular, Tachycardia Heart sounds: Normal auscultation Murmur: No - Extremities General upper extremity: Normal inspection, Normal ROM General lower extremity: Normal inspection, Normal ROM - when awake - Neurological Neuro grossly intact: Yes - after about 40 min, initially postictal Cognition: Normal Orientation: AAOx4 Stafford Coma Scale Eye Opening: Spontaneous Alyse Coma Scale Verbal: Oriented Stafford Coma Scale Motor: Obeys Commands Alyse Coma Scale Total: 15 Speech: Normal Motor strength normal: LUE, RUE, LLE, RLE Sensory: Normal - Skin Skin Temperature: Warm Skin Moisture: Dry Skin Color: Normal <AVILA ORELLANA - Last Filed: 07/12/17 16:30> - Vital signs Vitals: Resp Pulse Ox 23 H 100 07/12/17 11:48 07/12/17 11:48 Course - Laboratory Result Diagrams: 07/12/17 12:00 07/12/17 12:00 <GERALDINE IGLESIAS - Last Filed: 07/12/17 13:56> - Laboratory Result Diagrams: 07/12/17 12:00 07/12/17 12:00 <AVILA ORELLANA - Last Filed: 07/12/17 16:30> - Re-evaluation Re-evalutation: 07/12/17 13:[address] Abdullahi, neuro, states no changes and to follow up in office ( GERALDINE IGLESIAS) 07/12/17 Patient is feeling better at this time. No further seizure activity in the emergency department. Patient was loaded with Keppra. Patient was discussed with her neurologist who would not make any changes to her medications. Patient is to follow-up with him. Patient agrees with this plan. Stable for discharge. (AVILA ORELLANA) - Vital Signs Vital signs: Temp Pulse Resp BP Pulse Ox 30 H 135/79 H 99 07/12/17 15:38 07/12/17 15:38 07/12/17 15:38 - Laboratory Laboratory results interpreted by me: 07/12/17 07/12/17 07/12/17 12:00 12:24 13:19 Hgb 11.3 L Hct 33.5 L MCV 78 L MCH 26.5 L RDW 15.4 H POC Glucose 62 L Urine Blood MODERATE H Discharge <GERALDINE IGLESIAS - Last Filed: 07/12/17 13:56> <AVILA ORELLANA - Last Filed: 07/12/17 16:30> - Discharge Clinical Impression: Seizure Condition: Stable Disposition: HOME, SELF-CARE Instructions: Seizure, Known Epileptic ([facility]) Additional Instructions: Please follow-up with your doctor this week. Please return if you have further concerns. Natalie Attestation: 07/12/17 16:30 I personally performed the services described in the documentation, reviewed and edited the documentation which was dictated to the scribe in my presence, and it accurately records my words and actions. (AVILA ORELLANA) Scribe Documentation - Scribe Written by Natalie:: Natalie Jain, 07/12/2017 1309 acting as scribe for :: Jamison <GERALDINE IGLESIAS - Last Filed: 07/12/17 13:56>
[2017-07-12 13:08] LABS: VENOUS BLOOD BASE EXCESS 0.4 mmol/L; VENOUS BLOOD HCO3 25.3 mmol/L (20-32); VENOUS BLOOD PH 7.4 (7.30-7.42)
[2017-07-12] MEDS ORDERED: KETOROLAC TROMETHAMINE INJ/PF 30 MG/1 ML SDV IV ONE (13:10)
[2017-07-12] MEDS ORDERED: ONDANSETRON HCL INJ/PF 4 MG/2 ML SDV IV ONE (13:10)
[2017-07-12 13:49] LABS: APPEARANCE,URINE CLEAR; BILIRUBIN,URINE NEGATIVE (NEGATIVE); GLUCOSE, URINE NEGATIVE (NEGATIVE); KETONES,URINE NEGATIVE (NEGATIVE); LEUKOCYTE ESTERASE,URINE NEGATIVE (NEGATIVE); NITRITE,URINE NEGATIVE (NEGATIVE); PROTEIN,URINE NEGATIVE (NEGATIVE); URINE SPECIFIC GRAVITY 1.004; UROBILINOGEN,URINE NEGATIVE mg/dL (<2.0)
[2017-07-12] MEDS ORDERED: DIAZEPAM 2 MG TABLET PO ONE (14:03)
[2017-07-12 15:50] VITALS: BP 135/79
--- NOTE | 2017-07-13 09:23 | EKG REPORT ---
SEVERITY:- BORDERLINE ECG - SINUS TACHYCARDIA BORDERLINE T ABNORMALITIES, INFERIOR LEADS : Confirmed by: Avtar Villeda 13-Jul-2017 09:22:35
== END 2017-07-12 15:55 | disposition home or self-care (01) ==
LOC: ER 11:40
DX: R56.9 Unspecified convulsions (principal); Z79.899 Other long term (current) drug therapy; R00.0 Tachycardia, unspecified; Z88.1 Allergy status to other antibiotic agents
CPT/HCPCS: 93005; 99285; 96361; 96375; 96365; 36415; 87040; 87086; 82962; 84703; 85025; 85610; 87088; 80053; 81001; 82803; 71010; 70450; 93010; J3490; J1885; J2405; J7030; J1953; 87186

== ENCOUNTER 2017-07-25 09:08 | Emergency (ER) | payer OTHER ==
--- NOTE | 2017-07-25 09:19 | ER Document Report ---
ED Seizure - General Stated Complaint: POSSIBLE SEIZURES Time Seen by Provider: 07/25/17 09:19 Notes: Patient is a 22-year-old female with a history of pseudoseizures versus seizure disorder that presents to the emergency department today secondary to multiple seizures prior to arrival. EMS states they picked the patient up at work where she had three witnessed generalized seizures and then 2 with EMS, they were able to utilize her vagus nerve stimulator and she received 2.5mg of versed. EMS states that the patient had a seizure every 3 or 4 minutes in route here. Patient is on Keppra but skipped her evening dose and AM dose since she was staying at a friends house. She otherwise denies any recent URI symptoms, fevers , chills. She does admit to bodya kaity and headache. - Related Data Allergies/Adverse Reactions: moxifloxacin HCl [From Avelox] Allergy (Verified 05/10/17 21:49) Seizures Home Medications: Current Home Medications Aripiprazole [Aripiprazole] 1 - 2 tab PO DAILY 07/25/17 [History] Dronabinol [Marinol 2.5 mg Capsule] 1 - 2 tab PO Q8H 07/25/17 [History] Past Medical History - Social History Smoking Status: Current Every Day Smoker Family History: Reviewed & Not Pertinent Neurological Medical History: Reports: Hx Seizures - pseudo Renal/ Medical History: Reports: Hx Kidney Stones, Hx Ovarian Cysts, Hx Pelvic Inflammatory Disease - February 2014. Denies: Hx Peritoneal Dialysis Musculoskeltal Medical History: Reports Hx Arthritis, Reports Hx Musculoskeletal Trauma Psychiatric Medical History: Reports: Hx Anxiety, Hx Depression Past Surgical History: Reports: Hx Appendectomy, Hx Cholecystectomy - Immunizations Immunizations up to date: Yes Hx Diphtheria, Pertussis, Tetanus Vaccination: Yes Review of Systems - Review of Systems Constitutional: No symptoms reported Cardiovascular: No symptoms reported Respiratory: No symptoms reported Gastrointestinal: No symptoms reported Neurological/Psychological: See HPI -: Yes All other systems reviewed and negative Physical Exam - Vital signs Vitals: Pulse Ox 99 07/25/17 09:14 - Notes Notes: PHYSICAL EXAM GENERAL: Alert, interacts well. HEAD: Normocephalic, atraumatic. EYES: Pupils equal, round, and reactive to light. Extraocular movements intact. ENT: Oral mucosa moist, tongue midline. NECK: Full range of motion. Supple. Trachea midline. LUNGS: Clear to auscultation bilaterally, no wheezes, rales, or rhonchi. No respiratory distress. HEART: Regular rate and rhythm. No murmurs, gallops, or rubs. ABDOMEN: Soft, nondistended, nontender. No guarding, rebound, or rigidity.. Bowel sounds present in all 4 quadrants. EXTREMITIES: Moves all 4 extremities spontaneously. No edema, radial and dorsalis pedis pulses 2/4 bilaterally. No cyanosis. NEUROLOGICAL: Alert and oriented x4. Normal speech. PSYCH: Normal affect, normal mood. SKIN: Warm, dry, normal turgor. No rashes or lesions noted. Course - Re-evaluation Re-evalutation: 07/25/17 13:27 Patient is a 22-year-old female with presentation of well-appearing patient after having a seizure. Patient has a known history of seizures. She did skip two doses of her Keppra without any other additional trigger for today's episode. The patient has returned to baseline without additional intervention. No focal neurologic deficits. No infectious symptoms, vital sign abnormalities, or evidence of trauma. The patient will be discharged home with recommendations for close follow-up with primary care as well as their neurologist. Return precautions have been reviewed and patient has verbalized understanding. - Vital Signs Vital signs: Temp Pulse Resp BP Pulse Ox 97.7 F 104 H 15 109/71 100 07/25/17 13:35 07/25/17 13:35 07/25/17 13:35 07/25/17 13:35 07/25/17 13:35 - Laboratory Result Diagrams: 07/25/17 09:30 07/25/17 10:30 Laboratory results interpreted by me: 07/25/17 07/25/17 07/25/17 09:30 10:30 12:24 Hgb 11.2 L Hct 33.6 L MCH 26.4 L RDW 15.3 H Glucose 67 L Total Protein 6.1 L Ur Leukocyte Esterase TRACE H - Diagnostic Test Radiology reviewed: Image reviewed, Reports reviewed Discharge - Discharge Clinical Impression: Seizure Condition: Good Disposition: HOME, SELF-CARE Additional Instructions: Please be sure to take your Keppra as directed. Please follow-up with Dr. Kaminski tomorrow. Seizure, Known Epileptic You have had a seizure. Seizures may "break through" in an epileptic due to stress of infection or injury, a change in blood chemistry, or drug and alcohol use. Another common cause is failure to take medication as prescribed. Your doctor has evaluated your situation for the likely cause of this seizure. It is important that you follow his advice concerning any medication changes and follow-up care. Further testing of anti-seizure medication levels in your blood may be necessary. If you have a hazmat cdl a driver's license, it's important that you DO NOT DRIVE until given permission by your physician. This seizure must be reported to the hazmat cdl a driver 's license bureau. Call the doctor or return if seizures recur, or if new or unusual symptoms arise -- such as severe headache, confusion, excessive sleepiness, local weakness or numbness, neck stiffness, or fever. Forms: Return to Work Referrals: KATIE KAMINSKI MD [ACTIVE STAFF] - Follow up tomorrow
[2017-07-25] MEDS ORDERED: LEVETIRACETAM 1500 MG/NACL-ISO 1,500 MG/100 ML RTUPB IV ONE (09:31)
[2017-07-25 09:55] LABS: ABSOLUTE LYMPHOCYTES (AUTO) 1.4 10^3/uL (0.5-4.7); ABSOLUTE MONOCYTES (AUTO) 0.3 10^3/uL (0.1-1.4); ABSOLUTE NEUT (AUTO) 2.3 10^3/uL (1.7-8.2); EOSINOPHILS % (AUTO) 0.1 % (0-6); HEMATOCRIT 33.6 % (36.0-47.0); HEMOGLOBIN 11.2 g/dL (12.0-15.5); LYMPHOCYTES % (AUTO) 35.7 % (13-45); MEAN CORPUSCULAR HEMOGLOBIN 26.4 pg (27.0-33.4); MEAN CORPUSCULAR HGB CONC 33.2 g/dL (32.0-36.0); MEAN CORPUSCULAR VOLUME 80 fl (80-97); MONOCYTES % (AUTO) 6.4 % (3-13); RED BLOOD COUNT 4.22 10^6/uL (3.72-5.28); RED CELL DISTRIBUTION WIDTH 15.3 % (11.5-14.0); SEGMENTED NEUTROPHILS % (AUTO) 56.8 % (42-78)
[2017-07-25] MEDS ORDERED: ONDANSETRON HCL INJ/PF 4 MG/2 ML SDV IV ONE (10:10)
[2017-07-25] MEDS ORDERED: MORPHINE SULFATE 10 MG/ML INJ IV ONE (10:10)
--- NOTE | 2017-07-25 10:25 | RADIOLOGY REPORT (SQ) ---
EXAM DESCRIPTION: CT HEAD WITHOUT COMPLETED DATE/TIME: 07/25/2017 10:12 am REASON FOR STUDY: 5 seizures, fall with headache COMPARISON: 07/12/2017 TECHNIQUE: Axial images acquired through the brain without intravenous contrast. Images reviewed wi th bone, brain and subdural windows. Images stored on PACS. All CT scanners at this facility use dose modulation, iterative reconstruction, and/or weight based d osing when appropriate to reduce radiation dose to as low as reasonably achievable (ALARA). [facility]: Dose Right [facility]: CareDose [facility]: Dose Right [facility]: Teradose 4D [facility]: [employer] RADIATION DOSE: mGy. LIMITATIONS: None. FINDINGS: VENTRICLES: Normal size and contour. CEREBRUM: No masses. No hemorrhage. No midline shift. No evidence for acute infarction. Normal gra y/white matter differentiation. No areas of low density in the white matter. CEREBELLUM: No masses. No hemorrhage. No alteration of density. No evidence for acute infarction. EXTRAAXIAL SPACES: No fluid collections. No masses. ORBITS AND GLOBE: No intra- or extraconal masses. Normal contour of globe without masses. CALVARIUM: No fracture. PARANASAL SINUSES: No fluid or mucosal thickening. SOFT TISSUES: No mass or hematoma. OTHER: No other significant finding. IMPRESSION: NORMAL BRAIN CT WITHOUT CONTRAST. EVIDENCE OF ACUTE STROKE: NO. COMMENT: Quality ID # [id number]: Final reports with documentation of one or more dose reduction techniques (e.g., Automated exposure control, adjustment of the mA and/or kV according to patient size, use of iterative reconstruction technique) TECHNICAL DOCUMENTATION: JOB ID: [id number] [employer]- All Rights Reserved
--- NOTE | 2017-07-25 10:29 | RADIOLOGY REPORT (SQ) ---
EXAM DESCRIPTION: CT CERVICAL SPINE WITHOUT COMPLETED DATE/TIME: 07/25/2017 10:12 am REASON FOR STUDY: 5 seizures, fall with headache COMPARISON: December 2016 TECHNIQUE: Axial images acquired through the cervical spine without intravenous contrast. Images re viewed with lung, soft tissue and bone windows. Reconstructed coronal and sagittal MPR images review ed. Images stored on PACS. All CT scanners at this facility use dose modulation, iterative reconstruction, and/or weight based d osing when appropriate to reduce radiation dose to as low as reasonably achievable (ALARA). [facility]: Dose Right [facility]: CareDose [facility]: Dose Right [facility]: Teradose 4D [facility]: [employer] RADIATION DOSE: mGy. LIMITATIONS: None. FINDINGS: ALIGNMENT: Anatomic. MINERALIZATION: Normal. VERTEBRAL BODIES: No fractures or dislocation. DISCS: No significant disc disease. FACETS, LATERAL MASSES, POSTERIOR ELEMENTS: No fractures. No dislocation. No acute findings. HARDWARE: The previously described left-sided due color neurostimulator leads are again identified. VISUALIZED RIBS: No fractures. LUNG APICES AND SOFT TISSUES: No significant or acute findings. OTHER: No other significant finding. IMPRESSION: NO ACUTE OR SIGNIFICANT FINDINGS IN THE CERVICAL SPINE. TECHNICAL DOCUMENTATION: JOB ID: [id number] Quality ID # [id number]: Final reports with documentation of one or more dose reduction techniques (e.g., Au tomated exposure control, adjustment of the mA and/or kV according to patient size, use of iterative reconstruction technique) 2010 [employer]- All Rights Reserved
[2017-07-25] MEDS ORDERED: DIPHENHYDRAMINE HCL 50 MG/ML VIAL IV ONE (10:55)
[2017-07-25 11:17] LABS: ALANINE AMINOTRANSFERASE 26 U/L (9-52); ALBUMIN 3.8 g/dL (3.5-5.0); ALKALINE PHOSPHATASE 49 U/L (38-126); ANION GAP 10 (5-19); ASPARTATE AMINO TRANSFERASE 19 U/L (14-36); BILIRUBIN,DIRECT 0.3 mg/dL (0.0-0.4); BILIRUBIN,TOTAL 0.3 mg/dL (0.2-1.3); BLOOD UREA NITROGEN 12 mg/dL (7-20); CALCIUM 9.1 mg/dL (8.4-10.2); CARBON DIOXIDE 28 mmol/L (22-30); CHLORIDE 105 mmol/L (98-107); CREATININE RESULT 0.64 mg/dL (0.52-1.25); GLUCOSE 67 mg/dL (75-110); POTASSIUM 4.2 mmol/L (3.6-5.0); SODIUM 142.7 mmol/L (137-145); TOTAL PROTEIN 6.1 g/dL (6.3-8.2)
[2017-07-25] MEDS ORDERED: KETOROLAC TROMETHAMINE INJ/PF 30 MG/1 ML SDV IV ONE (12:28)
[2017-07-25 12:41] LABS: APPEARANCE,URINE CLEAR; BILIRUBIN,URINE NEGATIVE (NEGATIVE); GLUCOSE, URINE NEGATIVE (NEGATIVE); KETONES,URINE NEGATIVE (NEGATIVE); LEUKOCYTE ESTERASE,URINE TRACE (NEGATIVE); NITRITE,URINE NEGATIVE (NEGATIVE); PROTEIN,URINE NEGATIVE (NEGATIVE); URINE SPECIFIC GRAVITY 1.017; UROBILINOGEN,URINE NEGATIVE mg/dL (<2.0)
[2017-07-25 12:56] LABS: URINE BARBITURATES SCREEN NEGATIVE; URINE METHADONE SCREEN NEGATIVE; URINE OPIATES LOW UNCONFIRMED POSITIVE; URINE PHENCYCLIDINE SCREEN NEGATIVE
--- NOTE | 2017-07-25 13:18 | EKG REPORT ---
SEVERITY:- NORMAL ECG - SINUS RHYTHM : Confirmed by: Shakir Velazquez MD 25-Jul-2017 13:17:29
[2017-07-25 13:37] VITALS: BP 109/71
== END 2017-07-25 13:37 | disposition home or self-care (01) ==
LOC: ER 09:08
DX: R56.9 Unspecified convulsions (principal); Z79.899 Other long term (current) drug therapy; F17.200 Nicotine dependence, unspecified, uncomplicated
CPT/HCPCS: 93005; 99285; 96375; 96365; 36415; 82962; 83735; 84703; 85025; 80053; 81001; 80307; 70450; 72125; 93010; J1200; J1885; J2270; J2405; J1953

== ENCOUNTER 2017-07-30 12:15 | Emergency (ER) | payer OTHER ==
[2017-07-30] MEDS ORDERED: NORMAL SALINE 1000 ML 1,000 ML IV ONE (12:42)
[2017-07-30] MEDS ORDERED: ONDANSETRON HCL INJ/PF 4 MG/2 ML SDV IV ONE (12:42)
--- NOTE | 2017-07-30 12:45 | ER Document Report ---
ED General - General Mode of Arrival: Medic Information source: Patient TRAVEL OUTSIDE OF THE [place] IN LAST 30 DAYS: No - HPI Onset: Just prior to arrival <TERRA DIETZ - Last Filed: 07/30/17 12:56> <JOSHUA BLACKMON - Last Filed: 07/30/17 16:22> - General Chief Complaint: Seizure Stated Complaint: POSSIBLE SEIZURE Time Seen by Provider: 07/30/17 12:29 Notes: Patient is a 22 year old female with a history of pseudoseizures reports to the emergency department complaining of another possible seizure onset today. Patient states she was at work when the symptoms occurred. At bedside patient complained of nausea. This is the patients 4th visit in 3 weeks for seizures. Patient states her PCP, Dr. Abdullahi increased her Keppra on 07/26/2017 to wean her off of Onfri. Patient states she had an EEG around a week ago that "showed a major seizure". Patient was given Versed by EMS prior to arrival. (TERRA DIETZ) - Related Data Allergies/Adverse Reactions: moxifloxacin HCl [From Avelox] Allergy (Verified 05/10/17 21:49) Seizures Past Medical History - General Information source: Patient - Social History Smoking Status: Never Smoker Chew tobacco use (# tins/day): No Frequency of alcohol use: Drank heavily last night Drug Abuse: Marijuana Family History: Reviewed & Not Pertinent Patient has suicidal ideation: No Patient has homicidal ideation: No Neurological Medical History: Reports: Hx Seizures - pseudo Renal/ Medical History: Reports: Hx Kidney Stones, Hx Ovarian Cysts, Hx Pelvic Inflammatory Disease - February 2014 Musculoskeltal Medical History: Reports Hx Arthritis, Reports Hx Musculoskeletal Trauma Psychiatric Medical History: Reports: Hx Anxiety, Hx Depression Past Surgical History: Reports: Hx Appendectomy, Hx Cholecystectomy - Immunizations Immunizations up to date: Yes Hx Diphtheria, Pertussis, Tetanus Vaccination: Yes <TERRA DIETZ - Last Filed: 07/30/17 12:56> Review of Systems - Review of Systems Constitutional: No symptoms reported EENT: No symptoms reported Cardiovascular: No symptoms reported Respiratory: No symptoms reported Gastrointestinal: See HPI, Nausea Genitourinary: No symptoms reported Female Genitourinary: No symptoms reported Musculoskeletal: No symptoms reported Skin: No symptoms reported Hematologic/Lymphatic: No symptoms reported Neurological/Psychological: See HPI, Seizure -: Yes All other systems reviewed and negative <TERRA DIETZ - Last Filed: 07/30/17 12:56> Physical Exam - General General appearance: Appears well, Alert In distress: None - HEENT Head: Normocephalic, Atraumatic Eyes: Normal Conjunctiva: Normal Pupils: PERRL - Respiratory Respiratory status: No respiratory distress Chest status: Nontender Breath sounds: Normal - Cardiovascular Rhythm: Regular, Tachycardia Heart sounds: Normal auscultation Murmur: No Friction rub: No Gallop: None auscultated - Abdominal Inspection: Normal Distension: No distension Bowel sounds: Normal Tenderness: Nontender Organomegaly: No organomegaly - Back Back: Normal - Extremities General upper extremity: Normal inspection, Normal ROM General lower extremity: Normal inspection, Normal ROM - Neurological Neuro grossly intact: Yes Cognition: Normal Orientation: AAOx4 [place] Coma Scale Eye Opening: Spontaneous Alyse Coma Scale Verbal: Oriented [place] Coma Scale Motor: Obeys Commands [place] Coma Scale Total: 15 Speech: Normal - Psychological Associated symptoms: Normal affect, Normal mood - Skin Skin Temperature: Warm Skin Moisture: Dry Skin Color: Normal <TERRA DIETZ - Last Filed: 07/30/17 12:56> - Vital signs Vitals: Temp Pulse BP Pulse Ox 98.4 F 112 H 137/75 H 100 07/30/17 12:20 07/30/17 12:20 07/30/17 12:20 07/30/17 12:20 Course <J LUISTERRA EVERETT - Last Filed: 07/30/17 12:56> - Laboratory Result Diagrams: 07/30/17 13:00 07/30/17 13:00 <JOSHUA BLACKMON - Last Filed: 07/30/17 16:22> - Re-evaluation Re-evalutation: 07/30/17 14:05 Patient's total CK is only 72. This does call into question whether or not the patient truly had seizures like she claims. She is known for pseudoseizures. A Keppra level was drawn today as it was never checked on the previous 3 visits in the last 3 weeks. This may help in sorting things out the next time she comes in with the same complaint. She does state that she was referred from her local neurologist to a [facility] neurology group because her seizures seem to be so difficult to control. 07/30/17 16:19 The patient has been requesting pain medication all afternoon and was given Toradol and claimed it did nothing to help her. She does have a long history of presentation to the emergency room trying to get pain medicine. The patient went to the bathroom where she had one of her pseudoseizures. I believe she did know she was being discharged without pain medication. She did become completely alert and oriented after pneumonia capsule was offered by the nurse. (JOSHUA BLACKMON) - Vital Signs Vital signs: Temp Pulse Resp BP Pulse Ox 97.9 F 105 H 124/73 100 07/30/17 15:32 07/30/17 15:32 07/30/17 15:32 07/30/17 15:32 - Laboratory Laboratory results interpreted by me: 07/30/17 07/30/17 13:00 13:00 Hgb 10.8 L Hct 32.6 L MCH 26.4 L RDW 16.0 H Total Protein 6.1 L Discharge <TERRA DIETZ - Last Filed: 07/30/17 12:56> <JOSHUA BLACKMON - Last Filed: 07/30/17 16:22> - Discharge Clinical Impression: Seizures Condition: Stable Disposition: HOME, SELF-CARE Additional Instructions: Seizure, Known Epileptic You MAY have had a seizure. Seizures may "break through" in an epileptic due to stress of infection or injury, a change in blood chemistry, or drug and alcohol use. Another common cause is failure to take medication as prescribed. Your doctor has evaluated your situation for the likely cause of this seizure. It is important that you follow his advice concerning any medication changes and follow-up care. Further testing of anti-seizure medication levels in your blood may be necessary. If you have a [place]'s license, it's important that you DO NOT DRIVE until given permission by your physician. This seizure must be reported to the [place] 's license bureau. Call the doctor or return if seizures recur, or if new or unusual symptoms arise -- such as severe headache, confusion, excessive sleepiness, local weakness or numbness, neck stiffness, or fever. //////////////////////////////////////////////////////////////////////////////// //////////////////////////////////////////////////////////////////////////////// ////////////////// Be sure to continue your increasing doses of Keppra as scheduled. Follow-up with Dr. Abdullahi this week to discuss your ongoing seizures. RETURN TO THE EMERGENCY ROOM IF ANY NEW OR WORSENING SYMPTOMS. Scribe Attestation: 07/30/17 14:08 I personally performed the services described in the documentation, reviewed and edited the documentation which was dictated to the scribe in my presence, and it accurately records my words and actions. (JOSHUA BLACKMON) Scribe Documentation - Scribe Written by Scribe:: Natalie Miles, 07/30/2017 12:58 acting as scribe for :: Froylan <TERRA DIETZ - Last Filed: 07/30/17 12:56>
[2017-07-30 13:24] LABS: ABSOLUTE LYMPHOCYTES (AUTO) 1.7 10^3/uL (0.5-4.7); ABSOLUTE MONOCYTES (AUTO) 0.3 10^3/uL (0.1-1.4); ABSOLUTE NEUT (AUTO) 2.9 10^3/uL (1.7-8.2); BASOPHILS % (AUTO) 0.3 % (0-2); HEMATOCRIT 32.6 % (36.0-47.0); HEMOGLOBIN 10.8 g/dL (12.0-15.5); HGB HCT DIFFERENCE -0.2; LYMPHOCYTES % (AUTO) 33.9 % (13-45); MEAN CORPUSCULAR HEMOGLOBIN 26.4 pg (27.0-33.4); MEAN CORPUSCULAR HGB CONC 33.1 g/dL (32.0-36.0); MEAN CORPUSCULAR VOLUME 80 fl (80-97); MONOCYTES % (AUTO) 7.1 % (3-13); RED BLOOD COUNT 4.08 10^6/uL (3.72-5.28); SEGMENTED NEUTROPHILS % (AUTO) 58.7 % (42-78); WHITE BLOOD COUNT 4.9 10^3/uL (4.0-10.5)
[2017-07-30] MEDS ORDERED: KETOROLAC TROMETHAMINE INJ/PF 30 MG/1 ML SDV IV ONE (13:37)
[2017-07-30 13:57] LABS: ALANINE AMINOTRANSFERASE 22 U/L (9-52); ALKALINE PHOSPHATASE 59 U/L (38-126); ANION GAP 9 (5-19); ASPARTATE AMINO TRANSFERASE 18 U/L (14-36); BILIRUBIN,DIRECT 0.2 mg/dL (0.0-0.4); BILIRUBIN,TOTAL 0.3 mg/dL (0.2-1.3); BLOOD UREA NITROGEN 12 mg/dL (7-20); CARBON DIOXIDE 27 mmol/L (22-30); CHLORIDE 104 mmol/L (98-107); CREATINE KINASE 72 U/L (30-135); GLUCOSE 77 mg/dL (75-110); MAGNESIUM 1.9 mg/dL (1.6-2.3); POTASSIUM 4.1 mmol/L (3.6-5.0); TOTAL PROTEIN 6.1 g/dL (6.3-8.2)
[2017-07-30] MEDS ORDERED: AMMONIA INHALANTS 10 AMPUL/BOX IH ONE (16:18)
[2017-07-30 16:26] VITALS: BP 133/82
[2017-07-30 16:32] LABS: APPEARANCE,URINE CLEAR; BILIRUBIN,URINE NEGATIVE (NEGATIVE); GLUCOSE, URINE NEGATIVE (NEGATIVE); KETONES,URINE NEGATIVE (NEGATIVE); LEUKOCYTE ESTERASE,URINE SMALL (NEGATIVE); NITRITE,URINE NEGATIVE (NEGATIVE); PROTEIN,URINE NEGATIVE (NEGATIVE); URINE SPECIFIC GRAVITY 1.006; UROBILINOGEN,URINE NEGATIVE mg/dL (<2.0)
[2017-07-30 16:45] LABS: BACTERIA,URINE 3+ /HPF
== END 2017-07-30 16:41 | disposition home or self-care (01) ==
LOC: ER 12:15
DX: R56.9 Unspecified convulsions (principal)
CPT/HCPCS: 99284; 96361; 96374; 96375; 36415; 80177; 82550; 83605; 83735; 85025; 80053; 81001; J1885; J2405; J7030

== ENCOUNTER 2017-08-09 09:46 | Emergency (ER) | payer OTHER ==
[2017-08-09] MEDS ORDERED: HYDROCODONE/ACETAMINOPHEN 5-325 MG TABLET PO ONE (10:15)
--- NOTE | 2017-08-09 10:18 | ER Document Report ---
ED General - General Chief Complaint: Seizure Stated Complaint: POSSIBLE SEZIURE Time Seen by Provider: 08/09/17 10:15 Mode of Arrival: Ambulatory Information source: Patient Notes: Patient presents from work after a tonic-clonic seizure. She states she felt the "aura" coming on and went and laid down. Ambulance then arrived and she states she had a seizure in the ambulance. She states that she is recently had cough cold congestion and increasing body aches. She states that she has seen the physician at the [facility] and was given Motrin but this is not working. She denies missing any doses of her medications. The generalized body aches are constant and moderate. They are worse with movement and better with rest. They do radiate throughout her body. TRAVEL OUTSIDE OF THE [place] IN LAST 30 DAYS: No - Related Data Allergies/Adverse Reactions: moxifloxacin HCl [From Avelox] Allergy (Verified 08/09/17 09:47) Seizures Past Medical History - General Information source: Patient - Social History Smoking Status: Never Smoker Chew tobacco use (# tins/day): No Frequency of alcohol use: Occasional Drug Abuse: None Family History: Reviewed & Not Pertinent Patient has suicidal ideation: No Patient has homicidal ideation: No Neurological Medical History: Reports: Hx Seizures - pseudo Renal/ Medical History: Reports: Hx Kidney Stones, Hx Ovarian Cysts, Hx Pelvic Inflammatory Disease - February 2014. Denies: Hx Peritoneal Dialysis Musculoskeltal Medical History: Reports Hx Arthritis, Reports Hx Musculoskeletal Trauma Psychiatric Medical History: Reports: Hx Anxiety, Hx Depression Past Surgical History: Reports: Hx Appendectomy, Hx Cholecystectomy - Immunizations Immunizations up to date: Yes Hx Diphtheria, Pertussis, Tetanus Vaccination: Yes Review of Systems - Review of Systems Constitutional: Chills, Malaise, Weakness Cardiovascular: denies: Chest pain, Palpitations Respiratory: Cough. denies: Short of breath Gastrointestinal: Nausea. denies: Vomiting -: Yes All other systems reviewed and negative Physical Exam - Vital signs Vitals: Temp Pulse Resp BP Pulse Ox 98.4 F 97 18 137/81 H 100 08/09/17 09:56 08/09/17 09:56 08/09/17 09:56 08/09/17 09:56 08/09/17 09:56 Interpretation: Hypertensive - General General appearance: Appears well, Alert - HEENT Head: Normocephalic, Atraumatic Eyes: Normal Pupils: PERRL - Respiratory Respiratory status: No respiratory distress Chest status: Nontender Breath sounds: Normal Chest palpation: Normal - Cardiovascular Rhythm: Regular Heart sounds: Normal auscultation Murmur: No - Abdominal Inspection: Normal Distension: No distension Bowel sounds: Normal Tenderness: Nontender Organomegaly: No organomegaly - Back Back: Normal, Nontender - Extremities General upper extremity: Normal inspection, Nontender, Normal color, Normal ROM , Normal temperature General lower extremity: Normal inspection, Nontender, Normal color, Normal ROM , Normal temperature, Normal weight bearing. No: Aubrey's sign - Neurological Neuro grossly intact: Yes Cognition: Normal Orientation: AAOx4 Alyse Coma Scale Eye Opening: Spontaneous [place] Coma Scale Verbal: Oriented [place] Coma Scale Motor: Obeys Commands [place] Coma Scale Total: 15 Speech: Normal Motor strength normal: LUE, RUE, LLE, RLE Sensory: Normal - Psychological Associated symptoms: Normal affect, Normal mood - Skin Skin Temperature: Warm Skin Moisture: Dry Skin Color: Normal Course - Vital Signs Vital signs: Temp Pulse Resp BP Pulse Ox 98.4 F 97 18 137/81 H 100 08/09/17 09:56 08/09/17 09:56 08/09/17 09:56 08/09/17 09:56 08/09/17 09:56 - Laboratory Result Diagrams: 08/09/17 10:34 08/09/17 10:34 Laboratory results interpreted by me: 08/09/17 08/09/17 10:34 10:34 Hgb 11.0 L Hct 33.7 L MCV 79 L MCH 25.7 L RDW 16.1 H Urine Nitrite POSITIVE H Ur Leukocyte Esterase SMALL H Discharge - Discharge Clinical Impression: Seizure UTI (urinary tract infection) Qualifiers: Urinary tract infection type: site unspecified Hematuria presence: without hematuria Qualified Code(s): N39.0 - Urinary tract infection, site not specified Condition: Stable Disposition: HOME, SELF-CARE Instructions: Urinary Tract Infection ([facility]) Additional Instructions: Your blood pressure is mildly elevated. Please have this rechecked within 1 week by your doctor. Prescriptions: Azithromycin 1 gm PO ONCE PRN 1 Days #1 packet PRN Reason: Cefdinir 300 mg PO BID 7 Days #14 capsule Forms: Elevated Blood Pressure, Return to Work
[2017-08-09 11:02] LABS: ABSOLUTE LYMPHOCYTES (AUTO) 1.9 10^3/uL (0.5-4.7); ABSOLUTE MONOCYTES (AUTO) 0.3 10^3/uL (0.1-1.4); ABSOLUTE NEUT (AUTO) 3.4 10^3/uL (1.7-8.2); BASOPHILS % (AUTO) 0.2 % (0-2); HEMATOCRIT 33.7 % (36.0-47.0); HGB HCT DIFFERENCE -0.7; MEAN CORPUSCULAR HEMOGLOBIN 25.7 pg (27.0-33.4); MEAN CORPUSCULAR HGB CONC 32.5 g/dL (32.0-36.0); MEAN CORPUSCULAR VOLUME 79 fl (80-97); MONOCYTES % (AUTO) 6.1 % (3-13); RED BLOOD COUNT 4.26 10^6/uL (3.72-5.28); RED CELL DISTRIBUTION WIDTH 16.1 % (11.5-14.0); SEGMENTED NEUTROPHILS % (AUTO) 60.7 % (42-78); WHITE BLOOD COUNT 5.7 10^3/uL (4.0-10.5)
[2017-08-09 11:20] LABS: APPEARANCE,URINE SLIGHTLY-CLOUDY; BILIRUBIN,URINE NEGATIVE (NEGATIVE); GLUCOSE, URINE NEGATIVE (NEGATIVE); KETONES,URINE NEGATIVE (NEGATIVE); LEUKOCYTE ESTERASE,URINE SMALL (NEGATIVE); NITRITE,URINE POSITIVE (NEGATIVE); PROTEIN,URINE NEGATIVE (NEGATIVE); URINE SPECIFIC GRAVITY 1.017; UROBILINOGEN,URINE NEGATIVE mg/dL (<2.0)
[2017-08-09 11:30] LABS: ANION GAP 8 (5-19); BLOOD UREA NITROGEN 11 mg/dL (7-20); CALCIUM 9.2 mg/dL (8.4-10.2); CARBON DIOXIDE 30 mmol/L (22-30); CHLORIDE 101 mmol/L (98-107); CREATININE RESULT 0.63 mg/dL (0.52-1.25); GLUCOSE 78 mg/dL (75-110); POTASSIUM 4.5 mmol/L (3.6-5.0); SODIUM 138.5 mmol/L (137-145)
[2017-08-09 12:23] VITALS: BP 130/82
== END 2017-08-09 12:20 | disposition home or self-care (01) ==
LOC: ER 09:46
DX: R56.9 Unspecified convulsions (principal); N39.0 Urinary tract infection, site not specified; R05 Cough; R52 Pain, unspecified; R53.81 Other malaise; R68.83 Chills (without fever); R53.1 Weakness; R11.0 Nausea; Z88.1 Allergy status to other antibiotic agents
CPT/HCPCS: 36415; 80048; 81001; 81025; 85025; 99284

== ENCOUNTER 2017-08-23 11:45 | Emergency (ER) | payer OTHER ==
[2017-08-23 11:54] VITALS: BP 140/88
--- NOTE | 2017-08-23 12:19 | ER Document Report ---
ED General - General Chief Complaint: Seizure Stated Complaint: POSSIBLE SEIZURE Time Seen by Provider: 08/23/17 12:13 Mode of Arrival: Medic Information source: Patient, [facility] Records Notes: 22-year-old female history of seizure disorder who is on multiple seizure medications followed by Dr. Kaminski presents after seizure-like activity. pt notes it was 2 minutes, secondary to stress and insomnia. Pt denies any fevers or chills, denies any nausea or vomitng. pt did not urinate on herself or bite her tongue. TRAVEL OUTSIDE OF THE [place] IN LAST 30 DAYS: No - HPI Onset: Just prior to arrival Onset/Duration: Sudden Quality of pain: No pain Severity: Mild Pain Level: Denies Associated symptoms: Other Exacerbated by: Denies Relieved by: Denies Similar symptoms previously: No Recently seen / treated by doctor: No - Related Data Allergies/Adverse Reactions: moxifloxacin HCl [From Avelox] Allergy (Verified 08/23/17 11:48) Seizures Past Medical History - Social History Smoking Status: Never Smoker Cigarette use (# per day): No Chew tobacco use (# tins/day): No Smoking Education Provided: No Family History: Reviewed & Not Pertinent Neurological Medical History: Reports: Hx Seizures - pseudo Renal/ Medical History: Reports: Hx Kidney Stones, Hx Ovarian Cysts, Hx Pelvic Inflammatory Disease - February 2014. Denies: Hx Peritoneal Dialysis Musculoskeltal Medical History: Reports Hx Arthritis, Reports Hx Musculoskeletal Trauma Psychiatric Medical History: Reports: Hx Anxiety, Hx Depression Past Surgical History: Reports: Hx Appendectomy, Hx Cholecystectomy - Immunizations Immunizations up to date: Yes Hx Diphtheria, Pertussis, Tetanus Vaccination: Yes Review of Systems - Review of Systems Notes: REVIEW OF SYSTEMS: CONSTITUTIONAL : Denies fever, chills, or sweats. Denies recent illness. EENT: Denies eye, ear, throat, or mouth pain or symptoms. Denies nasal or sinus congestion or discharge. Denies throat, tongue, or mouth swelling or difficulty swallowing. CARDIOVASCULAR: Denies chest pain. Denies palpitations or racing or irregular heart beat. Denies ankle edema. RESPIRATORY: Denies cough, cold, or chest congestion. Denies shortness of breath, difficulty breathing, or wheezing. GASTROINTESTINAL: Denies abdominal pain or distention. Denies nausea, vomiting , or diarrhea. Denies blood in vomitus, stools, or per rectum. Denies black, tarry stools. Denies constipation. GENITOURINARY: Denies difficulty urinating, painful urination, burning, frequency, blood in urine, or discharge. FEMALE GENITOURINARY: Denies vaginal bleeding, heavy or abnormal periods, irregular periods. Denies vaginal discharge or odor. MUSCULOSKELETAL: Denies back or neck pain or stiffness. Denies joint pain or swelling. SKIN: Denies rash, lesions or sores. HEMATOLOGIC : Denies easy bruising or bleeding. LYMPHATIC: Denies swollen, enlarged glands. NEUROLOGICAL: Denies confusion or altered mental status. Denies passing out or loss of consciousness. Denies dizziness or lightheadedness. Denies headache. Denies weakness or paralysis or loss of use of either side. Denies problems with gait or speech. Denies sensory loss, numbness, or tingling. Denies seizures. PSYCHIATRIC: Denies anxiety or stress. Denies depression, suicidal ideation, or homicidal ideation. ALL OTHER SYSTEMS REVIEWED AND NEGATIVE. PHYSICAL EXAMINATION: GENERAL: Well-appearing, well-nourished and in no acute distress. HEAD: Atraumatic, normocephalic. EYES: Pupils equal round and reactive to light, extraocular movements intact, conjunctiva are normal. ENT: Nares patent, oropharynx clear without exudates. Moist mucous membranes. NECK: Normal range of motion, supple without lymphadenopathy LUNGS: Breath sounds clear to auscultation bilaterally and equal. No wheezes rales or rhonchi. HEART: Regular rate and rhythm without murmurs ABDOMEN: Soft, nontender, nondistended abdomen. No guarding, no rebound. No masses appreciated. Female : deferred Musculoskeletal: Normal range of motion, no pitting or edema. No cyanosis. NEUROLOGICAL: Cranial nerves grossly intact. Normal speech, normal gait. Normal sensory, motor exams PSYCH: Normal mood, normal affect. SKIN: Warm, Dry, normal turgor, no rashes or lesions noted. Dictation was performed using [employer] voice recognition software Physical Exam - Vital signs Vitals: Temp Pulse Resp BP Pulse Ox 98.1 F 102 H 14 140/88 H 100 08/23/17 11:53 08/23/17 11:53 08/23/17 11:53 08/23/17 11:53 08/23/17 11:53 Course - Re-evaluation Re-evalutation: 08/23/17 15:43 I evaluated the patient, she is medically stable, she has no neurological deficits, there is no weakness no numbness no bowel or loss of bowel or bladder function, patient still completely alert oriented, patient has had a few episodes here where it it is has been questionable if she had a seizure or not, nonetheless given that she is stable has no other complaints I will discharge home with follow-up with her own neurologist After performing a Medical Screening Examination, I estimate there is LOW risk for ACUTE GLAUCOMA, TEMPORAL ARTERITIS, MENINGITIS, INCRANIAL HEMORRHAGE, or ISCHEMIC STROKE thus I consider the discharge disposition reasonable. I have reevaluated this patient multiple times and no significant life threatening changes are noted. The patient and I have discussed the diagnosis and risks, and we agree with discharging home with close follow-up with the understanding that symptoms and presentations can change. We also discussed returning to the Emergency Department immediately if new or worsening symptoms occur. We have discussed the symptoms which are most concerning (e.g., changing or worsening symptoms, new numbness or weakness, vomiting, fever) that necessitate immediate return. - Vital Signs Vital signs: Temp Pulse Resp BP Pulse Ox 98.1 F 102 H 14 140/88 H 100 08/23/17 11:53 08/23/17 11:53 08/23/17 11:53 08/23/17 11:53 08/23/17 11:53 Discharge - Discharge Clinical Impression: Seizure-like activity Condition: Stable Disposition: HOME, SELF-CARE Instructions: Seizure, Known Epileptic ([facility]) Referrals: KATIE KAMINSKI MD [ACTIVE STAFF] - Follow up tomorrow
== END 2017-08-23 12:24 | disposition home or self-care (01) ==
LOC: ER 11:45
DX: R56.9 Unspecified convulsions (principal); G47.00 Insomnia, unspecified
CPT/HCPCS: 99283

== ENCOUNTER 2018-10-09 17:47 | Emergency (ER) | payer OTHER ==
--- NOTE | 2018-10-09 18:59 | ER Document Report ---
ED General - General Chief Complaint: Seizure Stated Complaint: POSSIBLE SEIZURE Time Seen by Provider: 10/09/18 18:34 Primary Care Provider: CONOR FARLEY PA-C [Primary Care Provider] - Follow up as needed Notes: Patient is a 23-year-old female with seizure disorder that presents to the emergency department for chief complaint of seizures. Patient states that just prior to ED arrival, she experienced 4-5 seizures that each lasted less than 1 minute. She was postictal afterwards, and lost control of her bladder, but no tongue lacerations. She has had multiple seizures in the past and continues to have them, her last was 3 weeks ago, she was recently started back up on Keppra, she has taken 500 mg twice daily, and was recently told and prescribed to increase her dose to 750 mg twice daily which she has not done yet. She does have a vagal stimulator, which she states she try to activate, and had to hold it over her left chest, and it seemed to help shorten the seizures, but they did continue to have a total of 5. She denies having any recent fevers, chills, night sweats, confusion, headaches, lightheadedness, dizziness, nausea, vomiting or abdominal pain. She has been complaining of some sinus congestion, runny nose and a mild cough. Past Medical History: Seizure disorder, depression, anxiety Past Surgical History: Vagal stimulator placement Social History: Admits to vaping nicotine, sees Dr. Dooley for neurology. Family History: Reviewed and noncontributory for presenting illness Allergies: Reviewed, see documented allergy list. REVIEW OF SYSTEMS: Other than noted above, the 12 point review of systems was reviewed with the patient and were negative, all pertinent findings are included in the HPI. PHYSICAL EXAMINATION: Vital signs reviewed, nursing noted reviewed. GENERAL: Well-appearing, well-nourished and in no acute distress. HEAD: Atraumatic, normocephalic. EYES: Eyes appear normal, extraocular movements intact, sclera anicteric, conjunctiva are normal. No nystagmus, PERRLA ENT: nares patent, oropharynx clear without exudates. Moist mucous membranes. No tenderness over the sinuses NECK: Normal range of motion, supple without lymphadenopathy LUNGS: Breath sounds clear to auscultation bilaterally and equal. No wheezes rales or rhonchi. HEART: Regular rate and rhythm without murmurs ABDOMEN: Soft, nontender, normoactive bowel sounds. No rebound, guarding, or rigidity. No masses appreciated. EXTREMITIES: Nontender, good range of motion, no pitting or edema. NEUROLOGICAL: No focal neurological deficits. Moves all extremities spontaneously Motor and sensory grossly intact on exam. PSYCH: Normal mood, normal affect. SKIN: Warm, Dry, normal turgor, no rashes or lesions noted on exposed skin TRAVEL OUTSIDE OF THE [place] 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 Denies: Hx Peritoneal Dialysis Musculoskeletal Medical History: Reports Hx Arthritis, Reports Hx Musculoskeletal Trauma Psychiatric Medical History: Reports: Hx Anxiety, Hx Depression Past Surgical History: Reports: Hx Appendectomy, Hx Cholecystectomy - Immunizations Immunizations up to date: Yes Hx Diphtheria, Pertussis, Tetanus Vaccination: Yes Physical Exam - Vital signs Vitals: Temp 98.5 F 10/09/18 18:02 Course - Re-evaluation Re-evalutation: Patient seen and examined vital signs reviewed. Laboratory data and imaging were ordered as appropriate for the patient's presenting symptoms and complaint, with consideration of any critical or life threatening conditions that may be associated with their obtained history and exam as noted above. Patient was treated with IV fluids, Toradol and given a dose of Keppra 1000 mg IV Results were reviewed when available and demonstrated UA positive for nitrites, and bacteria, concerning for possible urinary tract infection which may have triggered her seizures The patient was re-evaluated and was stable, given a dose of Keflex 500 mg Evaluation was most consistent with seizures and a nonepileptic, and a UTI. Patient be treated with Keflex for 7 days and follow-up with her neurologist. Results were discussed with the patient at this point, after careful consideration I feel that that patient can be discharged from the emergency department, the patient was educated treatments and reasons to return to the emergency department based on their presumed diagnosis as noted above, they were advised to followup with a primary care physician in 2-3 days. Patient was agreeable to plan of care. *Note is created using voice recognition software and may contain spelling, syntax or grammatical errors. Laboratory 10/09/18 22:10 Urine Color YELLOW Urine Appearance SLIGHTLY-CLOUDY Urine pH 6.0 Ur Specific [place] 1.020 Urine Protein NEGATIVE Urine Glucose (UA) NEGATIVE Urine Ketones NEGATIVE Urine Blood MODERATE H Urine Nitrite POSITIVE H Urine Bilirubin NEGATIVE Urine Urobilinogen 2.0 H Ur Leukocyte Esterase NEGATIVE Urine WBC (Auto) 2 Urine RBC (Auto) 1 Urine Bacteria (Auto) 3+ Squamous Epi Cells Auto 2 Urine Mucus (Auto) MOD Urine Ascorbic Acid NEGATIVE Urine HCG, Qual NEGATIVE - Vital Signs Vital signs: Temp Pulse Resp BP Pulse Ox 98.5 F 17 108/68 98 10/09/18 18:02 10/09/18 22:01 10/09/18 22:01 10/09/18 22:01 - Laboratory Laboratory results interpreted by me: 10/09/18 22:10 Urine Blood MODERATE H Urine Nitrite POSITIVE H Urine Urobilinogen 2.0 H Discharge - Discharge Clinical Impression: Seizure UTI (urinary tract infection) Qualifiers: Urinary tract infection type: site unspecified Hematuria presence: without hematuria Qualified Code(s): N39.0 - Urinary tract infection, site not specified Condition: Stable Disposition: HOME, SELF-CARE Instructions: Cephalexin ([facility]), Seizure, Known Epileptic ([facility]), Urinary Tract Infection ([facility]) Prescriptions: Cephalexin Monohydrate [Keflex 500 mg Capsule] 500 mg PO BID #14 capsule Referrals: CONOR FARLEY PA-C [Primary Care Provider] - Follow up as needed
[2018-10-09] MEDS ORDERED: LEVETIRACETAM 1000 MG/NACL-ISO 1,000 MG/100 ML RTUPB IV ONE (19:13)
[2018-10-09] MEDS ORDERED: NORMAL SALINE 1000 ML 1,000 ML IV ONE (19:14)
[2018-10-09] MEDS ORDERED: KETOROLAC TROMETHAMINE INJ/PF 30 MG/1 ML SDV IV ONE (19:14)
[2018-10-09 22:29] LABS: APPEARANCE,URINE SLIGHTLY-CLOUDY; BILIRUBIN,URINE NEGATIVE (NEGATIVE); COLOR,URINE YELLOW; GLUCOSE, URINE NEGATIVE (NEGATIVE); KETONES,URINE NEGATIVE (NEGATIVE); LEUKOCYTE ESTERASE,URINE NEGATIVE (NEGATIVE); NITRITE,URINE POSITIVE (NEGATIVE); PROTEIN,URINE NEGATIVE (NEGATIVE)
[2018-10-09] MEDS ORDERED: CEPHALEXIN 500 MG CAPSULE PO ONE (22:36)
[2018-10-09 22:58] VITALS: BP 100/64
--- NOTE | 2018-10-10 00:23 | EKG REPORT ---
SEVERITY:- BORDERLINE ECG - SINUS TACHYCARDIA BORDERLINE T ABNORMALITIES, INFERIOR LEADS : Confirmed by: Chante Hemphill MD 10-Oct-2018 00:22:43
== END 2018-10-09 23:03 | disposition home or self-care (01) ==
LOC: ER 17:47
DX: R56.9 Unspecified convulsions (principal); N39.0 Urinary tract infection, site not specified; Z79.899 Other long term (current) drug therapy; F17.200 Nicotine dependence, unspecified, uncomplicated
CPT/HCPCS: 93005; 99284; 96375; 96365; 87086; 81025; 87088; 81001; 87186; 93010; J1885; J7030; J1953